=== PATIENT | female | born 1940 | race Caucasian/White ===

== ENCOUNTER 2019-11-11 10:49 | Outpatient (CLI) | payer MEDICARE, MEDICAID, SELFPAY ==
--- NOTE | 2019-11-11 10:56 | XR_ITS ---
WS: [id number] PROCEDURE: XR chest 2V* [id number] CLINICAL INFORMATION: ASTHMATIC BRONCHITIS, UNSPECIFIED ASTHMA COMPARISON: December 16, 2018 FINDINGS: Heart: Cardiomegaly. Aortic calcification. Cardiac pacer. Lungs: Moderate chronic emphysematous changes. Trace left pleural fluid. No acute pulmonary infiltrat es. Bones: Osteopenia. Mild thoracic kyphosis. Aortic calcification. XR/XR chest 2V* [id number] IMPRESSION: 1. Cardiomegaly with cardiac pacer. 2. Moderate chronic emphysematous changes. No focal pneumonia. 3. Trace left pleural fluid.
== END 2019-11-11 10:50 | disposition home or self-care (01) ==
LOC: RADWPI 10:56
PROVIDERS: Family Provider Family Medicine; PCP Family Medicine; Visit Provider Family Medicine
DX: J45.909 Unspecified asthma, uncomplicated (principal); I51.7 Cardiomegaly; Z95.0 Presence of cardiac pacemaker
CPT/HCPCS: 71046

== ENCOUNTER 2020-04-05 21:37 | Emergency (ER) | payer MEDICARE, SELFPAY ==
[2020-04-05 21:50] VITALS: BP 152/67; PULSE 98; RESP 14; TEMP 37; O2SAT 92; BMI 44.6
--- NOTE | 2020-04-06 01:11 | ED_ITS ---
HPI - Extremity Problem General: Chief complaint: Extremity Problem,Nontraumatic Stated complaint: left leg pain Time Seen by Provider: 04/06/20 01:09 Source: patient Mode of arrival: ambulatory Limitations: no limitations History of Present Illness: HPI Narrative: Patient is a 79-year-old female who presents to ED today with a complaint of left leg pain. Patient tells me she began noticing some tingling to the lateral aspect of her left thigh while she was sitting earlier today. Patient tells me when she got up and ambulated the tingling seemed to go away but continued to have pain down lateral/posterior thigh and lower leg. She states she felt what she thought was a knot near her left knee. She has not noticed any redness or swelling to the extremity. Patient tells me she is having some left-sided back pain and wonders if maybe the pain is referred from that. She has not had any injury or trauma to the extremity. Complaint: extremity pain Onset (ago): hour(s) Pain Consistency: constant Location: left and lower extremity Radiation: none Associated symptoms: Reports no associated symptoms; Deny chest pain or fever(s) Review of Systems Const: Denies: fever(s) or chills Card: Denies: chest pain Resp: Denies: dyspnea : Denies: flank pain, difficulty voiding, dysuria, urinary frequency, urinary urgency or urinary hesitancy Musc: Reports: back pain and extremity pain (L LE); Denies: neck pain, extremity swelling, joint pain or joint swelling Neuro: Reports: sensory changes (tingling to L lateral thigh when seated) and difficulty walking (secondary to pain); Denies: headache(s), weakness in extremities, lack of coordination or frequent falls PFS ED PFSH: Medical History (Updated 04/06/20 @ 03:01 by SANDY Ellis) Essential hypertension Palpitation Surgical History (Updated 02/18/20 @ 18:28 by Mitchell Beal MD) Status post placement of cardiac pacemaker Family History Other CAD (coronary artery disease) Cancer Social History Smoking and tobacco status: never smoked Alcohol intake: never Physical Exam Const: COMMON NORMALS: no acute distress, patient oriented x3, no limitations and alert NUTRITIONAL APPEARANCE: obese morbidly obese Resp: COMMON NORMALS: normal respiratory effort and clear to auscultation bilaterally AUSCULTATION: clear to auscultation bilaterally Cardio: COMMON NORMALS: regular rate and regular rhythm RATE: regular rate RHYTHM: regular rhythm Back/Pelvis: THORACIC SPINE/UPPER BACK: Yes normal to inspection and Yes th oracic ROM normal LUMBAR SPINE/LOWER BACK: Yes lumbar spinal tenderness (mild mid to lower lumbar), Yes paraspinal muscle tenderness Lumbar paraspinal muscle tenderness: left and Yes straight leg raise positive left PELVIS: Yes buttocks normal SACROILIAC JOINTS: Yes SI joints normal Extremity: OTHER: pt has severe bilateral varicosities; she has equal bilateral non-pitting LE edema; she has no redness, unequal swelling, or warmth to the extremities; they are equal color/temp with palpable DP/PT pulses and normal cap refill; she has no swelling/obvious Meier's Cyst to her left popliteal region; sensory intact; can raise and hold LE extremities off table for 5+ seconds w/o drifting down; overall patient does have very poor motor conditioning Neuro: COMMON NORMALS: patient oriented x3, moves all extremities, no focal motor deficits and no sensory deficits noted SENSORIUM/ORIENTATION: Yes alert Skin: COMMON NORMALS: no rashes or lesions noted GENERAL SKIN EXAM: no rashes or lesions noted OTHER: see extremity assessment Course Vital Signs: Vital signs: Vital Signs Temperature 98.6 F 04/05/20 21:50 Pulse Rate 87 04/06/20 03:50 Respiratory Rate 20 H 04/06/20 03:50 Blood Pressure 146/58 04/06/20 03:50 Pulse Oximetry 96 04/06/20 03:50 MDM - Extremity (Nontraumatic) MDM Narrative: Medical decision making narrative: pt reports pain down from a 10/10 to a 5/10; she was able to ambulate around the ED with her walker (which she uses at home); she has no evidence for DVT, arterial occlusion, compartment syndrome, cord compression, or other emergency at this time; states she will followup with her PCP this week for re-evaluation if symptoms persist Discharge Plan Discharge Patient Disposition: Home, Self-Care Clinical Impression: Acute lumbar radiculopathy Condition: Stable Prescriptions: New hydrocodone-acetaminophen 5-325 mg tablet 1 tab PO Q6H PRN (Reason: pain) Qty: 14 RF: 0 Medrol (Dmitriy) 4 mg tablets,dose pack See Rx Instructions .ROUTE .COMPLEX Qty: 21 RF: 0 No Action losartan-hydrochlorothiazide 50-12.5 mg tablet 1 tab PO DAILY RF: 0 gabapentin 800 mg tablet 800 mg PO TID RF: 0 gabapentin 100 mg capsule 100 mg PO TID RF: 0 levothyroxine 75 mcg capsule 75 mcg PO DAILY RF: 0 Multiple Vitamin, Womens Tablet PO RF: 0 pyridoxine (vitamin B6) [Vitamin B-6] 100 mg tablet 50 mg PO DAILY RF: 0 cholecalciferol (vitamin D3) 2,000 unit tablet 2,000 unit PO .qod RF: 0 fluticasone propionate 50 mcg/actuation spray,suspension 1 spray INTRANASAL BID Qty: 9.9 RF: 0 albuterol sulfate [ProAir HFA] 90 mcg/actuation HFA aerosol inhaler 2 puff INHALATION Q6H PRN (Reason: shortness of breath or wheezing) Qty: 18 RF: 0 famotidine 20 mg tablet 20 mg PO BID Qty: 60 RF: 8 ciprofloxacin HCl [Cipro] 250 mg tablet 250 mg PO BID Qty: 14 RF: 0 metoprolol tartrate 25 mg tablet 12.5 mg PO DAILY Qty: 30 RF: 3 amoxicillin 500 mg capsule 500 mg PO TID Qty: 20 RF: 0 Discharge Orders: Discharge Order (Routine); Ordered 04/06/20 Ordered By: Yolanda Jasmine Referrals: Kendrick Nova MD [Primary Care Provider] - Patient Instructions: Lumbar Radiculopathy (ED), Back Pain (ED) Activity Restrictions/Additional Instructions: As discussed please follow-up with your primary care provider as soon as possible if symptoms persist. You may use the pain medications as needed for severe pain. Use your walker at all times for ambulation to prevent falls. You may return to the emergency department for worsening or uncontrollable pain, redness/warmth to the leg, unequal swelling, unable to ambulate, or any other concerns you may have. Discharge Date/Time: 04/06/20 04:09 Coding Level of Care Code ED Office Engineer for Mela Fwd Exam Detailed
[2020-04-06 01:36] VITALS: PULSE 86
[2020-04-06 02:15] VITALS: RESP 20
[2020-04-06] MEDS: morphine 4 mg/mL SDV 1 mL IM (02:15)
[2020-04-06] MEDS: dexamethasone 10 mg/mL INJ 8 MG IM (02:18)
[2020-04-06] MEDS: orphenadrine 30 mg/mL Inj 2 mL 60 MG IM (02:20)
--- NOTE | 2020-04-06 03:46 | PC.NURSE ---
Pt able to ambulate to restroom with walker and staff assistance after meds adm. OPERATIONAL ASSISTANT notified
[2020-04-06 03:50] VITALS: BP 146/58; PULSE 87; RESP 20; O2SAT 96
--- NOTE | 2020-04-06 04:09 | PC.NURSE ---
i agree with this assessment
--- NOTE | 2020-04-06 04:09 | PC.NURSE ---
i agree with assessment done on this pt.
== END 2020-04-06 04:09 | disposition home or self-care (01) ==
PROVIDERS: Emergency Provider Physician Assistant; PCP Family Medicine
DX: M54.16 Radiculopathy, lumbar region (principal); I10 Essential (primary) hypertension; Z95.0 Presence of cardiac pacemaker
CPT/HCPCS: 12345; 96372; 99281; 99283; J1100; J2270; J2360

== ENCOUNTER → 2020-04-28 10:27 | Outpatient (BNVA) | payer MEDICARE, MEDICAID, SELFPAY | PROVIDERS: PCP Family Medicine; Visit Provider Family Medicine | DX: E03.8 Other specified hypothyroidism (principal); G62.9 Polyneuropathy, unspecified; I10 Essential (primary) hypertension; M51.16 Intervertebral disc disorders with radiculopathy, lumbar region; M51.37 Other intervertebral disc degeneration, lumbosacral region | CPT/HCPCS: 80053; 84443; 85025 ==

== ENCOUNTER → 2021-04-12 12:40 | Outpatient (BNVA) | payer MEDICARE, MEDICAID, SELFPAY | PROVIDERS: PCP Family Medicine; Visit Provider Family Medicine | DX: E03.8 Other specified hypothyroidism (principal); I10 Essential (primary) hypertension | CPT/HCPCS: 80053; 84443; 85025 ==

== ENCOUNTER → 2021-07-05 14:13 | Outpatient (BNVA) | payer MEDICARE, SELFPAY | PROVIDERS: PCP Family Medicine; Visit Provider Family Medicine | DX: N39.0 Urinary tract infection, site not specified (principal) | CPT/HCPCS: 81000 ==

== ENCOUNTER 2021-08-04 13:50 | Outpatient (CLI) | payer MEDICARE, SELFPAY ==
--- NOTE | 2021-08-04 14:08 | CT_ITS ---
WS: [id number] CT HEAD TECHNIQUE: Noncontrast CT of the head obtained from the skullbase to the vertex. CLINICAL INFORMATION: head trauma 72 hours prior to exam COMPARISON: None. DLP: 925.[address] scans at [facility] use at least one of these dose optimization techniques: automated e xposure control; mA and/or kV adjustment per patient size (includes targeted exams where dose is matc hed to clinical indication); or iterative reconstruction. FINDINGS: No evidence of intracranial hemorrhage or mass effect. Ventricular system and basal cisterns are miles nt. Mild small vessel changes with mild parenchymal volume loss. No extra-axial fluid collections. No evidence of mass or mass effect. Normal delcid-white differentiation. Paranasal sinuses are well aerated. Mild mucosal thickening left mastoid tip. Right mastoid air cells well aerated. Normal posterior nasopharynx. Large soft tissue hematoma overlying the dorsal parietal calvarium near the vertex. No underlying fractures. CT/CT head wo con* [id number] IMPRESSION: 1. No evidence of intracranial hemorrhage or mass effect. 2. Large soft tissue hematoma overlying the dorsal parietal calvarium near the vertex. No underlying fractures. 3. No acute intracranial findings.
--- NOTE | 2021-08-04 14:45 | CT_ITS ---
WS: [id number] CT CERVICAL TRAUMA TECHNIQUE: Noncontrast CT of the cervical spine with coronal and sagittal reformatted images. CLINICAL INFORMATION: head and neck trauma COMPARISON: None. DLP: 1506.[address] scans at [facility] use at least one of these dose optimization techniques: automated e xposure control; mA and/or kV adjustment per patient size (includes targeted exams where dose is matc hed to clinical indication); or iterative reconstruction. FINDINGS: Straightening of the normal cervical lordosis. Mild spondylitic changes. Disc space narrowing worse a t C4-C5 and C5-C6. No high-grade central canal stenosis. Normal craniocervical junction. Normal C1-C2 articulation. Dens is normal in appearance. Normal occipital condyles Normal C1 ring. No evidence of acute fracture or dislocation. Normal prevertebral soft tissues. Mastoids air cells are well aerated. CT/CT cervical spin wo con* [id number] IMPRESSION: No evidence of acute fracture or dislocation.
== END 2021-08-04 13:51 | disposition home or self-care (01) ==
PROVIDERS: PCP Family Medicine; Visit Provider Family Medicine
DX: S09.90XA Unspecified injury of head, initial encounter (principal); S13.4XXA Sprain of ligaments of cervical spine, initial encounter; X58.XXXA Exposure to other specified factors, initial encounter
CPT/HCPCS: 70450; 72125

== ENCOUNTER 2021-08-08 08:15 | Emergency (ER) | payer MEDICARE, SELFPAY ==
[2021-08-08 08:24] VITALS: PULSE 92; RESP 19; O2SAT 99; BMI 48.4
--- NOTE | 2021-08-08 08:36 | XRR_ITS ---
PROCEDURE INFORMATION: Exam: XR Ribs Exam date and time: 08/08/2021 8:36 AM Age: 81 years old Clinical indication: Injury or trauma; Fall; Rib area; Blunt trauma (contusions or hematomas) TECHNIQUE: Imaging protocol: XR of the ribs. Views: 3 views. Bilateral ribs. Total images: 5 COMPARISON: No relevant prior studies available. FINDINGS: Tubes, catheters and devices: A pacemaker device is present, its leads in appropriate position. Bones/joints: Spinal degenerative changes are evident. No acute fracture nor subluxation. No osseous erosion nor periosteal reaction. Lungs: Trace atelectasis or scar noted in the right mid lung. Heart/Mediastinum: Upper normal heart size noted. Vasculature: Atherosclerosis is evident. Gastrointestinal tract: Bowel gas pattern is nondistended and nonobstructive. Soft tissues: Normal. XR/XR ribs BI mn 4V w CXR1V [id number] IMPRESSION: 1. Trace atelectasis or scar noted in the right mid lung. 2. Normal bowel gas pattern 3. No acute osseous pathology. Radiation Dose CTDIVOL = (mGy): DLP = (mGy-cm)
--- NOTE | 2021-08-08 08:37 | ECG_ITS ---
[facility] Test Date: 2021-08-08 Pat Name: Jhoana Gandhi Department: Room: Gender: Female Animal Technician: : 1940 Requested By: Ferny Mirza Order Number: [id number] Melva MD: Cathy Montemayor M.D. Measurements Intervals [place] Rate: 86 P: 139 CT: 160 QRS: -86 QRSD: 165 T: 70 QT: 389 QTc: 467 Interpretive Statements ELECTRONIC VENTRICULAR PACEMAKER ABNORMAL RHYTHM ECG No previous ECG available for comparison Electronically Signed On 08-08-2021 13:12:31 LINING STUFFER by Cathy Montemayor M.D. [id number] f
--- NOTE | 2021-08-08 08:38 | W.ED.GENADLT ---
HPI - General Adult General: Chief complaint: General Medical Stated complaint: WEAKNESS; PEDAL EDEMA Time Seen by Provider: 08/08/21 08:18 History of Present Illness: HPI narrative: 81-year-old female history of heart failure presents due to fatigue, diffuse weakness, right chest wall pain. States that she has been poorly compliant with her Lasix lately. Also states she had a fall a week ago and since then has been feeling diffusely weak. Had CT scan of the head by primary care 3 days ago which was unremarkable. Denies any worsening of symptoms since that CT was done. Also reports right lateral chest wall pain states she did not tell her primary care doctor about. States fall was mechanical denies any prodrome. Denies any focal numbness weakness or tingling. States chest pain only started upon impact and was not present before she fell and hit her right chest. Denies any abdominal pain back pain or neck pain. Denies any hearing change vision change or vertigo. Denies feeling her pacemaker shocking her. Review of Systems Narrative: - CONSTITUTIONAL: Denies weight loss, fever and chills. - HEENT: Denies changes in vision and hearing. - RESPIRATORY: Denies SOB and cough. - CV: Denies palpitations and CP. - GI: Denies abdominal pain, nausea, vomiting and diarrhea. - : Denies dysuria and urinary frequency. - MSK: Denies myalgia and joint pain. - SKIN: Denies rash and pruritus. - NEUROLOGICAL: Denies headache,numbness and syncope. - PSYCHIATRIC: Denies suicidal ideation Physical Exam Narrative: EXAM NARRATIVE: - GENERAL: Alert and oriented x 3. No acute distress. Well-nourished. - EYES: EOMI. Anicteric. - HENT: Atraumatic, no C-spine tenderness. Moist mucous membranes. No scleral icterus. No cervical lymphadenopathy. - LUNGS: Clear to auscultation bilaterally. No accessory muscle use. Equal lung sounds bilaterally. No respiratory distress. - CARDIOVASCULAR: Regular rate and rhythm. No murmur. No JVD. Right lateral chest wall tenderness to palpation. - ABDOMEN: Soft, non-tender and non-distended. Negative CVA tenderness bilaterally, no rebound or guarding, negative Garcia sign. No palpable masses. - EXTREMITIES: +2 bilateral pitting lower extremity edema. Non-tender. - SKIN: No rashes or lesions. Warm. - NEUROLOGIC: No meningismus or focal neurological deficits. CN II-XII grossly intact. - PSYCHIATRIC: Cooperative. Appropriate mood and affect. Course Vital Signs: Vital signs: Vital Signs Pulse Rate 84 08/08/21 09:35 Respiratory Rate 19 H 08/08/21 08:24 Blood Pressure 137/75 08/08/21 09:35 Pulse Oximetry 97 08/08/21 09:35 MDM - General Adult MDM Narrative: Medical decision making narrative: 81-year-old female presents with general malaise and diffuse weakness. Does have bilateral lower extremity edema. Had a fall a week ago but did not have any prodrome or syncope or loss of consciousness. Nonfocal neurologic exam. Had unremarkable CT scan by PCP. X-ray does not reveal pneumothorax or consolidation. No sign of rib fractures. No other focal pain or tenderness. Had good urine output with a dose of Lasix. EKG and troponin do not reveal any sign of acute ischemia or other acute abnormality. Does have ventricular paced rhythm but pacemaker interrogation does not reveal any episodes of arrhythmia or discharges. Remainder of lab work is unremarkable. Encouraged her to be compliant with her home Lasix. At this time I believe patient would be safe for discharge and outpatient follow-up. Return precautions provided. Plan was reviewed with the patient who expressed understanding. Questions answered. Patient will follow up with PCP. Patient discharged in stable condition. Lab Data: Labs: Lab Results 08/08/21 08/08/21 08/08/21 09:10 11:13 11:13 WBC 7.7 10^3/uL 10^3/ uL (4.0-10.0) RBC 4.71 10^6/uL 10^6 /uL (4.1-5.3) Hgb 13.8 g/dL g/dL (11.5-15.3) Hct 44.6 % % (37.0-47.0) MCV 94.7 fl fl (81-99) MCH 29.3 pg pg (28.0-34.0) MCHC 30.9 g/dL g/dL (30.0-36.0) RDW 13.0 % % (12.1-15.1) Plt Count 160 10^3/cmm 10^3 /cmm (130-400) MPV 11.7 fL H fL (7.4-10.4) Neut % (Auto) 77.0 % % Lymph % (Auto) 13.0 % % [place] % (Auto) 7.6 % % Eos % (Auto) 1.2 % % Baso % (Auto) 0.7 % % Neut # (Auto) 5.91 10^3/uL 10^3 /uL (1.8-7.7) Lymph # (Auto) 1.0 10^3/uL 10^3/ uL (0.8-4.8) [place] # (Auto) 0.6 10^3/uL 10^3/ uL (0.2-0.9) Eos # (Auto) 0.1 10^3/uL 10^3/ uL (0.0-0.8) Baso # (Auto) 0.1 10^3/uL 10^3/ uL (0.0-0.1) Nucleated RBC % (a uto) 0 % % Nucleated RBCs # 0.0 /100WBC /100W BC Sodium Cancelled Potassium Cancelled Chloride Cancelled Carbon Dioxide Cancelled Anion Gap Cancelled BUN Cancelled Creatinine Cancelled GFR Calculation Cancelled Glucose Cancelled Calculated Osmolal ity Cancelled Calcium Cancelled Total Bilirubin Cancelled AST Cancelled ALT Cancelled Alkaline Phosphata se Cancelled Troponin T Baselin e NT-Pro-B Natriuret Pep Cancelled Total Protein Cancelled Albumin Cancelled Globulin Cancelled Urine Color Yellow (Yellow) Urine Appearance Clear (CLEAR) Urine pH 8 H (5-7) Ur Specific Gravit y 1.010 (1.005-1.030) Urine Protein Neg (Negative) Urine Glucose (UA) Norm (Normal) Urine Ketones Negative (Negative) Urine Blood Neg (Negative) Urine Nitrate Negative (Negative) Urine Bilirubin Neg (Negative) Prot Sulfosalicyli c Acd Negative (Negative) Urine Urobilinogen Norm mg/dL mg/dL (Negative) Ur Leukocyte Yulia ase Negative (Negative) Urine RBC Rare /hpf /hpf (0-2) Urine WBC 0-4 /hpf H /hpf (0-5) Ur Squamous Epith Cells Rare /hpf /hpf (0-5) Amorphous Sediment Not Reportable Urine Bacteria Trace /hpf /hpf (NONE) 08/08/21 08/08/21 08/08/21 11:13 11:54 13:14 WBC RBC Hgb Hct MCV MCH MCHC RDW Plt Count MPV Neut % (Auto) Lymph % (Auto) [place] % (Auto) Eos % (Auto) Baso % (Auto) Neut # (Auto) Lymph # (Auto) [place] # (Auto) Eos # (Auto) Baso # (Auto) Nucleated RBC % (a uto) Nucleated RBCs # Sodium 139 mmol/L mmol/L (136-145) Potassium 3.8 mmol/L mmol/L (3.5-5.1) Chloride 97 mmol/L L mmol/ L (98-107) Carbon Dioxide 28 mmol/L mmol/L (22-29) Anion Gap 17.8 (5-19) BUN 8 mg/dL mg/dL (8-23) Creatinine 0.7 mg/dL mg/dL (0.5-0.9) GFR Calculation Not Reportable Glucose 101 mg/dL mg/dL (65-115) Calculated Osmolal ity 286 mOsm/kg mOsm/ kg (285-295) Calcium 8.9 mg/dL mg/dL (8.5-10.5) Total Bilirubin 0.5 mg/dL mg/dL (0.15-1.2) AST 21 U/L U/L (0-32) ALT 9 U/L U/L (0-33) Alkaline Phosphata se 87 IU/L IU/L (35-105) Troponin T Baselin e Cancelled 12 ng/L H ng/L (0-10) NT-Pro-B Natriuret Pep Total Protein 7.2 g/dL g/dL (6.6-8.7) Albumin 3.6 g/dL g/dL (3.5-5.2) Globulin 3.6 g/dL g/dL (1.3-4.6) Urine Color Urine Appearance Urine pH Ur Specific Gravit y Urine Protein Urine Glucose (UA) Urine Ketones Urine Blood Urine Nitrate Urine Bilirubin Prot Sulfosalicyli c Acd Urine Urobilinogen Ur Leukocyte Yulia ase Urine RBC Urine WBC Ur Squamous Epith Cells Amorphous Sediment Urine Bacteria EKG Data^: EKG 1: Computer generated interpretation: Ribs w/Chest X-Ray 08/08/21 08:36 IMPRESSION: 1. Trace atelectasis or scar noted in the right mid lung. 2. Normal bowel gas pattern 3. No acute osseous pathology. Radiation Dose CTDIVOL = (mGy): DLP = (mGy-cm) Other EKG comments: Ventricular paced rhythm at 86, no sign of acute ischemia or other acute abnormality. Coding Level of Care Code ED Architecture Professor for Mela Arriaza
[2021-08-08 09:35] VITALS: BP 137/75; PULSE 84; O2SAT 97
[2021-08-08 09:57] LABS: Urine Appearance Clear (CLEAR); Urine Color Yellow (Yellow); pH Urine 8 (5-7)
[2021-08-08 09:58] LABS: Bilirubin Urine Neg (Negative); Blood Urine Neg (Negative); Glucose Urine UA Norm (Normal); Ketones Urine Negative (Negative); Leukocyte Esterase Urine Negative (Negative); Nitrate Urine Negative (Negative); Protein Urine Neg (Negative); Sulfosalicylic Acid Urine Negative (Negative); Urobilinogen Urine Norm (Negative)
[2021-08-08 10:05] LABS: Add Urine Culture? No; Bacteria Urine TRACE /hpf; RBC Urine RARE /hpf (0-2); Squamous Epithelial Cell Urine RARE /hpf (0-5); WBC Urine 0-4 /hpf (0-5)
--- NOTE | 2021-08-08 10:37 | ECG_ITS ---
[facility] Test Date: 2021-08-08 Pat Name: Jhoana Gandhi Department: Room: Gender: Female Lead Massage Therapist: : 1940 Requested By: Ferny Mirza Order Number: [id number] Melva MD: Cathy Montemayor M.D. Measurements Intervals [place] Rate: 78 P: CO: QRS: -88 QRSD: 171 T: 73 QT: 406 QTc: 463 Interpretive Statements ELECTRONIC VENTRICULAR PACEMAKER ABNORMAL RHYTHM ECG Compared to ECG 08/08/2021 08:45:14 No significant changes Electronically Signed On 08-08-2021 13:22:28 ACCOUNTING COORDINATOR by Cathy Montemayor M.D. [id number] f
[2021-08-08] MEDS: acetaminophen 325 mg Tablet 650 MG PO (11:10)
[2021-08-08] MEDS: FUROsemide 10 mg/mL SDV 4mL 40 MG IVP (11:10)
[2021-08-08 11:29] LABS: Basophils # 0.1 10^3/uL (0.0-0.1); Basophils % 0.7 %; Eosinophils # 0.1 10^3/uL (0.0-0.8); Eosinophils % 1.2 %; Hematocrit 44.6 % (37.0-47.0); Hemoglobin 13.8 g/dL (11.5-15.3); Mean Corpuscular HGB Conc 30.9 g/dL (30.0-36.0); Mean Corpuscular Hemoglobin 29.3 pg (28.0-34.0); Mean Corpuscular Volume 94.7 fl (81-99); Mean Platelet Volume 11.7 fL (7.4-10.4); Monocytes # 0.6 10^3/uL (0.2-0.9); Monocytes % 7.6 %; Neutrophils # 5.91 10^3/uL (1.8-7.7); Nucleated Red Blood Cells % 0 %; Platelet Count 160 10^3/cmm (130-400); Red Blood Count 4.71 10^6/uL (4.1-5.3); White Blood Count 7.7 10^3/uL (4.0-10.0)
[2021-08-08 14:05] LABS: Alanine Aminotransferase 9 U/L (0-33); Albumin Level 3.6 g/dL (3.5-5.2); Alkaline Phosphatase 87 IU/L (35-105); Anion Gap 17.8 (5-19); Aspartate Amino Transferase 21 U/L (0-32); Blood Urea Nitrogen 8 mg/dL (8-23); Calcium 8.9 mg/dL (8.5-10.5); Carbon Dioxide 28 mmol/L (22-29); Chloride 97 mmol/L (98-107); Globulin 3.6 g/dL (1.3-4.6); Glucose 101 mg/dL (65-115); Osmolality Calculated 286 mOsm/kg (285-295); Potassium 3.8 mmol/L (3.5-5.1); Sodium 139 mmol/L (136-145); Total Bilirubin 0.5 mg/dL (0.15-1.2); Total Protein 7.2 g/dL (6.6-8.7)
[2021-08-08 14:32] LABS: NT Pro B Type Natriuretic Pept 1269 pg/mL (0-450)
[2021-08-08 14:47] LABS: Troponin(5th) Baseline 11 ng/L (0-10)
[2021-08-08 14:48] LABS: Troponin 5 2HR Delta 1.09 ABS# (0-10)
[2021-08-08 14:50] LABS: Troponin 5 2HR 12.09 ng/L (0-10)
== END 2021-08-08 14:48 | disposition home or self-care (01) ==
PROVIDERS: Emergency Provider Emergency Medicine; PCP Family Medicine
DX: R53.1 Weakness (principal); R07.89 Other chest pain
CPT/HCPCS: 36415; 71111; 80053; 81001; 83880; 84484; 85025; 93005; 96374; 99283; J1940

== ENCOUNTER → 2021-12-30 13:47 | Outpatient (BNVA) | payer MEDICARE, SELFPAY | PROVIDERS: PCP Family Medicine; Visit Provider Nurse Practitioner Family | DX: I11.0 Hypertensive heart disease with heart failure (principal); I50.32 Chronic diastolic (congestive) heart failure; I48.19 Other persistent atrial fibrillation; Z79.01 Long term (current) use of anticoagulants | CPT/HCPCS: 99214 ==

== ENCOUNTER → 2022-01-07 10:26 | Outpatient (BNVA) | payer MEDICARE, SELFPAY | PROVIDERS: PCP Family Medicine; Visit Provider Internal Medicine Cardiovascular Disease | DX: Z45.010 Encounter for checking and testing of cardiac pacemaker pulse generator [battery] (principal) | CPT/HCPCS: 93280 ==

== ENCOUNTER → 2022-01-18 11:38 | Outpatient (BNVA) | payer MEDICARE, SELFPAY | PROVIDERS: PCP Family Medicine; Visit Provider Family Medicine | DX: R32 Unspecified urinary incontinence (principal) | CPT/HCPCS: 81000 ==

== ENCOUNTER 2022-04-14 09:05 | Emergency (ER) | payer MEDICARE, SELFPAY ==
--- NOTE | 2022-04-14 09:09 | XRR_ITS ---
PROCEDURE INFORMATION: Exam: XR Chest Exam date and time: 04/14/2022 9:52 AM Age: 81 years old Clinical indication: Pain; Shortness of breath; Angina pectoris; Prior surgery; Surgery type: Pacer; Additional info: Cp TECHNIQUE: Imaging protocol: Radiologic exam of the chest. Views: 1 view. COMPARISON: CR XR ribs BI mn 4V w CXR1V [id number] 08/08/2021 10:06 AM FINDINGS: Lungs: Low lung volumes are seen. The lungs are otherwise clear No consolidation. Pleural spaces: Unremarkable. No pleural effusion. No pneumothorax. Heart/Mediastinum: Unremarkable. No cardiomegaly. Bones/joints: Unremarkable. Cardiac device left anterior chest. Bipolar leads are intact and appear well-positioned. Comparison to prior examination similar findings seen. XR/XR chest 1V portable [id number] IMPRESSION: No acute findings. Low lung volumes. Stable cardiac device left anterior chest
--- NOTE | 2022-04-14 09:10 | ECG_ITS ---
[facility] Test Date: 2022-04-14 Pat Name: Jhoana Gandhi Department: Room: Gender: Female Integrated Logistics Support Manager: : 1940 Requested By: Obi Lynch Order Number: [id number] Frye MD: Nick Vazquez M.D. Measurements Intervals [place] Rate: 72 P: 124 VT: 258 QRS: -88 QRSD: 170 T: 64 QT: 431 QTc: 472 Interpretive Statements ELECTRONIC VENTRICULAR PACEMAKER ABNORMAL RHYTHM ECG Compared to ECG 12/16/2018 13:50:11 Sinus rhythm no longer present First degree AV block no longer present Left-axis deviation no longer present Left bundle-branch block no longer present Electronically Signed On 04-14-2022 21:15:15 CDT by Nick Vazquez M.D. [id number]
[2022-04-14 09:11] VITALS: BP 148/78; PULSE 71; RESP 16; TEMP 36.6; O2SAT 98; BMI 47.5
--- NOTE | 2022-04-14 09:22 | ED_ITS ---
HPI - Chest Pain General: Chief Complaint: Chest Pain Stated Complaint: Chest pains and tightness Time Seen by Provider: 04/14/22 09:13 Source: patient Mode of arrival: ambulatory Limitations: no limitations History of Present Illness: 81 yo female generally does not feel well. She has some chest tightness that she reports has had for approximately a month. She has no known history of coronary artery disease she did have a pacemaker placed she has a history of atrial fibrillation she has not noticed any palpitations. She is not forgotten or run out of any of her medications recently. Denies any fever sweats or chills she has some mild frequency of urination. No vomiting no diarrhea. She does states she vaguely does not feel well this persisted for at least a month. MD complaint: chest pain Onset (ago): month(s) (1) Timing of current episode: episodic Onset: during rest Pain location: left chest Pain radiation: none Severity: mild Quality: tightness and heaviness Relieving factors: nothing Exacerbating factors: nothing Associated symptoms: Deny abdominal pain, diaphoresis, dyspnea, fever(s), leg edema, nausea, palpitations, sense of impending doom, syncope or vomiting Treatment prior to arrival: none Review of Systems Const: Denies: fever(s) or diaphoresis ENMT: Denies: throat pain, ear or mastoid pain, nasal discharge or nasal congestion Card: Reports: chest pain; Denies: palpitations, irregular heart rhythm, edema or syncope Resp: Denies: dyspnea, productive cough, non-productive cough or wheezing GI: Denies: abdominal pain, nausea or vomiting : Reports: dysuria (Mild) and urinary frequency; Denies: flank pain, difficulty voiding or urinary urgency Skin/Breast: Denies: rash or pruritus PFSH ED PFSH: Medical History DDD (degenerative disc disease) Diastolic heart failure Essential hypertension Hypertension Hypothalamic hypothyroidism Hypothyroid Lumbar disc disease with radiculopathy Neuropathy Palpitation Surgical History Status post placement of cardiac pacemaker Family History Other CAD (coronary artery disease) Cancer Social History (Reviewed 04/14/22 @ 12:38 by JOSEFA Maya Smoking and tobacco status: never smoked Alcohol intake: never Physical Exam Const: COMMON NORMALS: no acute distress GENERAL APPEARANCE: cooperative and comfortable ORIENTATION/CONSCIOUSNESS: Yes awake, Yes oriented to person, Yes oriented to place and Yes oriented to time HENMT: COMMON NORMALS: normocephalic, atraumatic and hearing grossly normal bilaterally HEAD & SCALP: normocephalic and atraumatic Neck/C-Spine: COMMON NORMALS: no JVD Resp: COMMON NORMALS: normal respiratory effort, No retractions, No use of accessory muscles and clear to auscultation bilaterally AUSCULTATION: clear to auscultation bilaterally Cardio: COMMON NORMALS: no JVD, regular rate, regular rhythm and No murmurs present (Cardio) RATE: regular rate RHYTHM: regular rhythm GI: COMMON NORMALS: Soft to palpation and No hepatosplenomegaly present AUSCULTATION: Yes normoactive bowel sounds PALPATION: Yes Soft to palpation, No Tenderness to palpation present (GI), No Guarding due to palpation present (GI) and Yes No hepatosplenomegaly present Extremity: COMMON NORMALS: normal to inspection, capillary refill normal, no clubbing, cyanosis or edema, no calf tenderness and no pedal edema Neuro: SENSORIUM/ORIENTATION: Yes oriented to person, Yes oriented to place and Yes oriented to time Skin: COMMON NORMALS: no rashes or lesions noted GENERAL SKIN EXAM: no rashes or lesions noted Course 2 Vital Signs: Vital signs: Vital Signs Temperature 97.8 F 04/14/22 09:11 Pulse Rate 71 04/14/22 09:11 Respiratory Rate 16 04/14/22 09:11 Blood Pressure 148/78 04/14/22 09:11 Pulse Oximetry 98 04/14/22 09:11 MDM - Chest Pain Medical Decision Making Labs and imaging reviewed patient has a mild cystitis troponins negative EKG showed paced rhythm she not having any significant chest pain now. We will go and discharge home Macrobid twice daily for 7 days return if is further problems Medical Records I reviewed the patient's medical records. Lab Data : 04/14/22 09:40 04/14/22 09:40 Radiology Impressions Chest X-Ray 04/14/22 09:09 IMPRESSION: No acute findings. Low lung volumes. Stable cardiac device left anterior chest Laboratory Results WBC 8.0 10^3/uL (4.0-10.0) 04/14/22 09:40 RBC 4.00 10^6/uL (4.1-5.3) L 04/14/22 09:40 Hgb 11.6 g/dL (11.5-15.3) 04/14/22 09:40 Hct 38.3 % (37.0-47.0) 04/14/22 09:40 MCV 95.8 fl (81-99) 04/14/22 09:40 MCH 29.0 pg (28.0-34.0) 04/14/22 09:40 MCHC 30.3 g/dL (30.0-36.0) 04/14/22 09:40 RDW 13.1 % (12.1-15.1) 04/14/22 09:40 Plt Count 200 10^3/cmm (130-400) 04/14/22 09:40 MPV 10.7 fL (7.4-10.4) H 04/14/22 09:40 Neut % (Auto) 63.7 % 04/14/22 09:40 Lymph % (Auto) 21.3 % 04/14/22 09:40 [place] % (Auto) 10.7 % 04/14/22 09:40 Eos % (Auto) 3.0 % 04/14/22 09:40 Baso % (Auto) 0.9 % 04/14/22 09:40 Neut # (Auto) 5.09 10^3/uL (1.8-7.7) 04/14/22 09:40 Lymph # (Auto) 1.7 10^3/uL (0.8-4.8) 04/14/22 09:40 [place] # (Auto) 0.9 10^3/uL (0.2-0.9) 04/14/22 09:40 Eos # (Auto) 0.2 10^3/uL (0.0-0.8) 04/14/22 09:40 Baso # (Auto) 0.1 10^3/uL (0.0-0.1) 04/14/22 09:40 Nucleated RBC % (auto) 0 % 04/14/22 09:40 Nucleated RBCs # 0.0 /100WBC 04/14/22 09:40 Sodium 140 mmol/L (136-145) 04/14/22 09:40 Potassium 4.3 mmol/L (3.5-5.1) 04/14/22 09:40 Chloride 99 mmol/L (98-107) 04/14/22 09:40 Carbon Dioxide 33 mmol/L (22-29) H 04/14/22 09:40 Anion Gap 12.3 (5-19) 04/14/22 09:40 BUN 14 mg/dL (8-23) 04/14/22 09:40 Creatinine 0.9 mg/dL (0.5-0.9) 04/14/22 09:40 GFR Calculation Not Reportable 04/14/22 09:40 Glucose 103 mg/dL (65-115) 04/14/22 09:40 Calculated Osmolality 291 mOsm/kg (285-295) 04/14/22 09:40 Calcium 9.2 mg/dL (8.5-10.5) 04/14/22 09:40 Total Bilirubin 0.3 mg/dL (0.15-1.2) 04/14/22 09:40 AST 18 U/L (0-32) 04/14/22 09:40 ALT 12 U/L (0-33) 04/14/22 09:40 Alkaline Phosphatase 105 IU/L (35-105) 04/14/22 09:40 Troponin T Baseline 13 ng/L (0-10) H 04/14/22 09:40 Troponin T 120 Minute 11.46 ng/L (0-10) H 04/14/22 11:38 Delta Troponin T -1.54 ABS# (0-10) L 04/14/22 11:38 NT-Pro-B Natriuret Pep 323 pg/mL (0-450) 04/14/22 09:40 Total Protein 6.7 g/dL (6.6-8.7) 04/14/22 09:40 Albumin 4.1 g/dL (3.5-5.2) 04/14/22 09:40 Globulin 2.6 g/dL (1.3-4.6) 04/14/22 09:40 Urine Color Colorless (Yellow) 04/14/22 10:45 Urine Appearance Clear (CLEAR) 04/14/22 10:45 Urine pH 7 (5-7) 04/14/22 10:45 Ur Specific [place] 1.005 (1.005-1.030) 04/14/22 10:45 Urine Protein Neg (Negative) 04/14/22 10:45 Urine Glucose (UA) Norm (Normal) 04/14/22 10:45 Urine Ketones Negative (Negative) 04/14/22 10:45 Urine Blood Neg (Negative) 04/14/22 10:45 Urine Nitrate Negative (Negative) 04/14/22 10:45 Urine Bilirubin Neg (Negative) 04/14/22 10:45 Urine Urobilinogen Norm mg/dL (Negative) 04/14/22 10:45 Ur Leukocyte Esterase 1+ (Negative) H 04/14/22 10:45 Urine RBC 0-4 /hpf (0-2) H 04/14/22 10:45 Urine WBC 25-40 /hpf (0-5) H 04/14/22 10:45 Ur Squamous Epith Cells 0-4 /hpf (0-5) H 04/14/22 10:45 Amorphous Sediment Not Reportable 04/14/22 10:45 Urine Bacteria 4+ /hpf (NONE) H 04/14/22 10:45 Discharge Plan Discharge Patient Disposition: Home Clinical Impression: Cystitis Condition: Stable Prescriptions: New Macrobid 100 mg capsule 100 mg PO BID 7 Days Qty: 14 0RF Rx Instructions: must administer with a meal/food No Action lysine [L-Lysine] 500 mg tablet 500 mg PO DAILY PRN (Reason: cold sores) 0RF hydrocodone-acetaminophen 5-325 mg tablet 1 tab PO Q4H PRN (Reason: pain) 7 Days Qty: 42 0RF pyridoxine (vitamin B6) [Vitamin B-6] 100 mg tablet 50 mg PO DAILY 0RF nitrofurantoin macrocrystal [Macrodantin] 50 mg capsule 50 mg PO BID Qty: 20 0RF metoprolol tartrate 25 mg tablet 25 mg PO BID Qty: 180 3RF Eliquis 5 mg tablet 5 mg PO BID Qty: 180 3RF potassium chloride 20 mEq tablet extended release 20 meq PO DAILY Qty: 90 3RF levothyroxine 88 mcg tablet 88 mcg PO DAILY 0RF gabapentin 800 mg tablet 800 mg PO TID 0RF furosemide 20 mg tablet 20 mg PO DAILY PRN (Reason: Edema) 0RF diltiazem HCl 60 mg capsule,extended release 12 hr 60 mg PO BID 0RF gabapentin 100 mg capsule 100 mg PO TID 0RF oxybutynin chloride 5 mg tablet 5 mg PO DAILY 0RF moxifloxacin 0.5 % Drops 1 drp OPHTHALMIC (EYE) TID 0RF Rx Instructions: RIGHT EYE Discharge Orders: Discharge ED (Routine); Ordered 04/14/22 Ordered By: Chilango Dove Referrals: Kendrick Nova MD [Primary Care Provider] - Discharge Diet: Usual diet Discharge Activity: Increase activity as tolerated Patient Instructions: Opioid Safety Activity Restrictions/Additional Instructions: Increase fluids. If symptoms worsen or change return to the emergency room Coding Level of Care Code ED [employer]ing [employer] for Mela Arriaza
[2022-04-14 09:58] LABS: Basophils # 0.1 10^3/uL (0.0-0.1); Basophils % 0.9 %; Eosinophils # 0.2 10^3/uL (0.0-0.8); Hematocrit 38.3 % (37.0-47.0); Hemoglobin 11.6 g/dL (11.5-15.3); Lymphocytes # 1.7 10^3/uL (0.8-4.8); Lymphocytes % 21.3 %; Mean Corpuscular HGB Conc 30.3 g/dL (30.0-36.0); Mean Corpuscular Volume 95.8 fl (81-99); Mean Platelet Volume 10.7 fL (7.4-10.4); Monocytes # 0.9 10^3/uL (0.2-0.9); Monocytes % 10.7 %; Neutrophils # 5.09 10^3/uL (1.8-7.7); Neutrophils % 63.7 %; Nucleated Red Blood Cells % 0 %; Platelet Count 200 10^3/cmm (130-400); Red Cell Distribution Width 13.1 % (12.1-15.1)
[2022-04-14 10:22] LABS: Troponin(5th) Baseline 13 ng/L (0-10)
[2022-04-14 10:36] LABS: Alanine Aminotransferase 12 U/L (0-33); Albumin Level 4.1 g/dL (3.5-5.2); Alkaline Phosphatase 105 IU/L (35-105); Anion Gap 12.3 (5-19); Aspartate Amino Transferase 18 U/L (0-32); Blood Urea Nitrogen 14 mg/dL (8-23); Calcium 9.2 mg/dL (8.5-10.5); Carbon Dioxide 33 mmol/L (22-29); Chloride 99 mmol/L (98-107); Globulin 2.6 g/dL (1.3-4.6); Glucose 103 mg/dL (65-115); NT Pro B Type Natriuretic Pept 323 pg/mL (0-450); Osmolality Calculated 291 mOsm/kg (285-295); Potassium 4.3 mmol/L (3.5-5.1); Sodium 140 mmol/L (136-145); Total Bilirubin 0.3 mg/dL (0.15-1.2); Total Protein 6.7 g/dL (6.6-8.7)
[2022-04-14 11:27] LABS: Add Urine Microscopic? YES; Bilirubin Urine Neg (Negative); Blood Urine Neg (Negative); Glucose Urine UA Norm (Normal); Ketones Urine Negative (Negative); Leukocyte Esterase Urine 1+ (Negative); Nitrate Urine Negative (Negative); Protein Urine Neg (Negative); Specific Gravity, Urine 1.005 (1.005-1.030); Urine Appearance Clear (CLEAR); Urine Color Colorless (Yellow); Urobilinogen Urine Norm (Negative); pH Urine 7 (5-7)
[2022-04-14 11:28] LABS: Add Urine Culture? Yes; Bacteria Urine 4+ /hpf; RBC Urine 0-4 /hpf (0-2); Squamous Epithelial Cell Urine 0-4 /hpf (0-5); WBC Urine 25-40 /hpf (0-5)
[2022-04-14 12:14] LABS: Troponin 5 2HR 11.46 ng/L (0-10)
[2022-04-14 12:17] LABS: Troponin 5 2HR Delta -1.54 ABS# (0-10)
== END 2022-04-14 13:10 | disposition home or self-care (01) ==
PROVIDERS: Physician Assistant; Emergency Provider Family Medicine; PCP Family Medicine
DX: N30.90 Cystitis, unspecified without hematuria (principal); Z79.01 Long term (current) use of anticoagulants; I11.0 Hypertensive heart disease with heart failure; I50.30 Unspecified diastolic (congestive) heart failure; Z95.0 Presence of cardiac pacemaker
CPT/HCPCS: 71045; 80053; 81001; 83880; 84484; 85025; 87077; 87086; 87186; 93005; 99285

== ENCOUNTER → 2022-07-15 10:13 | Outpatient (BNVA) | payer MEDICARE, SELFPAY | PROVIDERS: PCP Family Medicine; Visit Provider Internal Medicine Cardiovascular Disease | DX: I11.0 Hypertensive heart disease with heart failure (principal); I50.32 Chronic diastolic (congestive) heart failure; I48.19 Other persistent atrial fibrillation; Z79.01 Long term (current) use of anticoagulants; Z95.0 Presence of cardiac pacemaker | CPT/HCPCS: 93280; 99214 ==

== ENCOUNTER → 2022-10-03 11:56 | Outpatient (BNVA) | payer MEDICARE, SELFPAY | PROVIDERS: PCP Family Medicine; Visit Provider Family Medicine | DX: I11.0 Hypertensive heart disease with heart failure (principal); I50.32 Chronic diastolic (congestive) heart failure | CPT/HCPCS: 80053; 83880; 84443 ==

== ENCOUNTER → 2023-01-17 10:46 | Outpatient (BNVA) | payer MEDICARE, SELFPAY | PROVIDERS: PCP Family Medicine; Visit Provider Specialist | DX: I48.19 Other persistent atrial fibrillation (principal); Z79.01 Long term (current) use of anticoagulants; Z95.0 Presence of cardiac pacemaker; I11.0 Hypertensive heart disease with heart failure; I50.32 Chronic diastolic (congestive) heart failure | CPT/HCPCS: 99214 ==

== ENCOUNTER 2023-02-27 13:43 | Outpatient (CLI) | payer MEDICARE, SELFPAY ==
--- NOTE | 2023-02-27 13:30 | USCV_ITS ---
Jhoana Gandhi Age: 82 Gender: F : 1940 Exam Date: 02/27/2023 14:12 Ordering Phys: Leonardo Yang MD ([email or web address]) Technologist: Dorys Caicedo [place] [facility] [place]: SOB BP: 136 / 70 HR: 68 Rhythm: Sinus Technical Quality: Adequate MEASUREMENTS (Male / Female) Normal Values 2D ECHO LV Diastolic Diameter PLAX 4.8 cm 4.2 - 5.9 / 3.9 - 5.3 cm LV Systolic Diameter PLAX 3.1 cm IVS Diastolic Thickness 1.3 cm 0.6 - 1.0 / 0.6 - 0.9 cm IVS Systolic Thickness 1.6 cm LVPW Diastolic Thickness 1.4 cm 0.6 - 1.0 / 0.6 - 0.9 cm LVPW Systolic Thickness 2.1 cm LVOT Diameter 2.0 cm LV Ejection Fraction 2D Teich 62.7 % LV Ejection Fraction MOD 2C 58.1 % LV Ejection Fraction 2C AL 58.5 % LA Diameter 3.8 cm LA Width 3.5 cm LA Height 6.3 cm RA Width 3.4 cm RA Height 5.1 cm Aorta at Sinotubular Diameter 2.1 cm IVC Diameter 2.0 cm M-MODE Aortic Annulus Diameter 2.6 cm LA Ao Ratio MM 1.4 MV E Point Septal Separation 0.2 cm DOPPLER AV Peak Velocity 179.7 cm/s LVOT Peak Velocity 97.0 cm/s AV Area Cont Eq vti 1.8 cm squared AV Area Cont Eq pk 1.8 cm squared MV Peak Velocity 151.0 cm/s MV Area PHT 5.9 cm squared Mitral E to A Ratio 2.2 MV E' Velocity 78.0 cm/s Mitral E to MV E' Ratio 8.9 Mitral E to LV E' Lateral Ratio 10.4 Mitral E to LV E' Septal Ratio 7.9 TR Peak Velocity 267.5 cm/s TR Peak Gradient 28.6 mmHg Right Atrial Pressure 5.0 mmHg Pulmonary Artery Systolic Pressu 33.6 mmHg PV Peak Velocity 109.0 cm/s RV Acceleration Time 0.1 s RV Ejection Time 0.3 s RV AcT/ET 0.2 FINDINGS Left Ventricle Normal left ventricular size, systolic function and increased wall thickness. Moderate concentric left ventricular hypertrophy. Left ventricular ejection fraction is estimated at 55 %. There is distal apical septal and apical hypokinesis. Grade III diastolic dysfunction (restrictive filling pattern), severely elevated filling pressures. Right Ventricle Normal right ventricular size and systolic function. Moderate pulmonary hypertension, RVSP 49 mmHg. Catheter/pacemaker wire visualized in the right ventricle. Right Atrium Normal right atrial size. Left Atrium Mildly increased left atrial size. Mitral Valve Structurally normal mitral valve. No mitral valve stenosis. Trace mitral valve regurgitation. Aortic Valve Aortic valve not well visualized. No aortic valve stenosis. No aortic valve regurgitation. Tricuspid Valve Structurally normal tricuspid valve. No tricuspid valve stenosis. Mild tricuspid valve regurgitation. Pulmonic Valve Pulmonic valve not well visualized. Pericardium No pericardial effusion. Aorta Normal size aortic root and proximal ascending aorta. IVC Normal IVC dimension with >50% respiratory change of the inferior vena cava. CONCLUSIONS 1. Normal left ventricular size, systolic function and increased wall thickness. Moderate concentric left ventricular hypertrophy. Left ventricular ejection fraction is estimated at 55 %. There seems to be distal apical septal and apical hypokinesis. Grade III diastolic dysfunction (restrictive filling pattern), severely elevated filling pressures. 2. Mild tricuspid valve regurgitation. 3. Moderate pulmonary hypertension, RVSP 49 mmHg. 4. No significant change when compared to study dated 09/27/2018. Cathy Montemayor MD (Electronically Signed) Final Date: 02 March 2023 18:43 S
== END 2023-02-27 13:44 | disposition home or self-care (01) ==
PROVIDERS: PCP Family Medicine; Visit Provider Specialist
DX: R06.02 Shortness of breath (principal); I50.30 Unspecified diastolic (congestive) heart failure; Z95.0 Presence of cardiac pacemaker; I07.1 Rheumatic tricuspid insufficiency; I27.20 Pulmonary hypertension, unspecified
CPT/HCPCS: 93306

== ENCOUNTER → 2023-07-18 11:18 | Outpatient (BNVA) | payer MEDICARE, SELFPAY | PROVIDERS: PCP Family Medicine; Visit Provider Internal Medicine Cardiovascular Disease | DX: I48.19 Other persistent atrial fibrillation (principal); Z79.01 Long term (current) use of anticoagulants; I11.0 Hypertensive heart disease with heart failure; I50.32 Chronic diastolic (congestive) heart failure; Z95.0 Presence of cardiac pacemaker | CPT/HCPCS: 99214 ==

== ENCOUNTER 2023-09-13 13:07 | Emergency (ER) | payer MEDICARE, SELFPAY ==
[2023-09-13 13:12] VITALS: BP 123/74; PULSE 76; RESP 18; TEMP 36.6; O2SAT 100; BMI 49.1
[2023-09-13 18:12] VITALS: BP 104/74; PULSE 92; RESP 18; O2SAT 99
--- NOTE | 2023-09-13 18:27 | ED_ITS ---
HPI - Extremity Problem General: Chief complaint: Extremity Injury, Lower Stated complaint: blood blister on left leg, bleeding Time Seen by Provider: 09/13/23 18:00 History of Present Illness: Patient presents to the ER with complaints of large blood blister on her left anterior kwan. Patient is on Eliquis as a blood thinner. Patient states approximately 3 days ago she knocked a book off the shelf and it hit her in the kwan and she developed this blood blister. She went to urgent care because he was red swollen and irritated looking they looked at it and told her if it started outwardly oozing or bleeding to come to the ER immediately because if she is on a blood thinner. It started bleeding today so she came to the ER for further evaluation and treatment. Bleeding is controlled. There is no odor or erythema streaking. Review of Systems General: Reports: 10 or more systems reviewed and unremarkable except in HPI and below PFSH ED PFSH: Medical History Morbid obesity with alveolar hypoventilation Left bundle branch block Third degree heart block GERD (gastroesophageal reflux disease) Irritable bowel syndrome Venous (peripheral) insufficiency Diastolic heart failure Lumbar disc disease with radiculopathy Hypothyroid Hypothalamic hypothyroidism Hypertension Neuropathy DDD (degenerative disc disease) Palpitation Essential hypertension Surgical History S/P cataract surgery S/P lens implant History of tonsillectomy History of carpal tunnel release Status post placement of cardiac pacemaker Family History Other CAD (coronary artery disease) Cancer Social History Smoking and tobacco/nicotine status: never used tobacco/nicotine Alcohol intake: never Substance/Drug Use: never Physical Exam Const: COMMON NORMALS: no acute distress, average body habitus, patient oriented x3, no limitations, healthy appearing, alert and well nourished Neck/C-Spine: COMMON NORMALS: no JVD Chest: COMMONS NORMALS: normal inspection of the chest and normal palpation of entire chest wall Resp: COMMON NORMALS: normal respiratory effort, No retractions, No use of accessory muscles and clear to auscultation bilaterally AUSCULTATION: clear to auscultation bilaterally Cardio: COMMON NORMALS: no JVD, regular rate, regular rhythm, S1 normal heart sound present, S2 normal heart sound present, No gallops present (Cardio), No clicks present (Cardio), No murmurs present (Cardio) and No rub (Cardio) RATE: regular rate RHYTHM: regular rhythm HEART SOUNDS: S1 normal heart sound present and S2 normal heart sound present GI: COMMON NORMALS: Normal to inspection, nondistended, normoactive bowel sounds present, Soft to palpation, non-tender, No hepatosplenomegaly present and no masses PALPATION: Yes Soft to palpation and Yes No hepatosplenomegaly present Extremity: NARRATIVE EXTREMITY EXAM: There is a hematoma on the left anterior kwan approximately 5 cm long by 3 cm w jesika. There is oozing from the lower portion of it. This area was incised and clot was expressed and culture was taken. Patient tolerated the procedure well. Neuro: COMMON NORMALS: patient oriented x3 SENSORIUM/ORIENTATION: Yes alert Course Vital Signs: Vital signs: Vital Signs Temperature 97.8 F 09/13/23 13:12 Pulse Rate 92 09/13/23 18:12 Respiratory Rate 18 09/13/23 18:12 Blood Pressure 104/74 09/13/23 18:12 Pulse Oximetry 99 09/13/23 18:12 Oxygen Delivery Me thod Room Air 09/13/23 18:12 Oxygen Flow Rate 2 09/13/23 13:12 MDM - Extremity (Nontraumatic) Medical Decision Making Patient presents to the ER for evaluation of hematoma on her left anterior kwan. Patient is on Eliquis. Area was incised o'clock was expressed. Culture was obtained. Patient be placed on Keflex for prophylactic treatment. Patient should follow-up with her PCP in approximately 7 days or sooner for further evaluation and treatment. Differential Diagnosis Unlikely herpes zoster, gout, cellulitis, superficial thrombophlebitis, deep venous thrombosis of upper extremity, lower extremity edema or deep vein thrombosis of lower extremity Medical Records I reviewed the patient's medical records. Lab Data I reviewed the patient's lab results. No radiology studies performed this visit Discharge Plan Discharge Patient Disposition: Home Clinical Impression: Hematoma of lower extremity, Anticoagulation adequate Condition: Stable Prescriptions: No Action lysine [L-Lysine] 500 mg tablet 500 mg PO DAILY PRN (Reason: cold sores) pyridoxine (vitamin B6) [Vitamin B-6] 100 mg tablet 50 mg PO DAILY hydrocodone-acetaminophen 5-325 mg tablet 1 tab PO Q4H PRN (Reason: pain) 7 Days Qty: 42 0RF levothyroxine 100 mcg tablet 100 mcg PO DAILY Qty: 90 3RF potassium chloride 20 mEq tablet extended release 20 meq PO DAILY Qty: 90 3RF famotidine 20 mg tablet See Rx Instructions .ROUTE .COMPLEX Qty: 180 0RF Dose Instruction: TAKE 1 TABLET BY MOUTH TWICE A DAY Rx Instructions: TAKE 1 TABLET BY MOUTH TWICE A DAY furosemide 20 mg tablet See Rx Instructions .ROUTE .COMPLEX Qty: 90 3RF Dose Instruction: TAKE 1 TABLET BY MOUTH EVERY DAY NEEDED FOR EDEMA Rx Instructions: TAKE 1 TABLET BY MOUTH EVERY DAY NEEDED FOR EDEMA diltiazem HCl 60 mg capsule,extended release 12 hr 60 mg PO BID Qty: 180 3RF metoprolol tartrate 25 mg tablet 25 mg PO BID Qty: 180 3RF Eliquis 5 mg tablet 5 mg PO BID Qty: 180 3RF gabapentin 800 mg tablet See Rx Instructions .ROUTE .COMPLEX Qty: 270 1RF Dose Instruction: TAKE 1 TABLET BY MOUTH THREE TIMES A DAY Rx Instructions: TAKE 1 TABLET BY MOUTH THREE TIMES A DAY gabapentin 100 mg capsule See Rx Instructions .ROUTE .COMPLEX Qty: 270 1RF Dose Instruction: TAKE 1 CAPSULE BY MOUTH THREE TIMES A DAY Rx Instructions: TAKE 1 CAPSULE BY MOUTH THREE TIMES A DAY Discharge Orders: Discharge ED (Routine); Ordered 09/13/23 Ordered By: Elder Le Referrals: Kendrick Nova MD [Primary Care Provider] - 1 week Patient Instructions: Incision and Drainage (ED), Hematoma (ED) Activity Restrictions/Additional Instructions: Your hematoma was incised and drained in ER. Please keep the wound clean and dry and change dressings as necessary. Please take all your antibiotics. Please follow-up with your family practice physician within the next 7 days for further evaluation and treatment. If your wound starts bleeding uncontrollably or has a foul odor or is more painful than previous or there is red streaking please return to the ER. Coding Level of Care Code ED [employer] for Mela Arriaza
[2023-09-13] MEDS: cephALEXin 500 mg Capsule PO (18:32)
[2023-09-13 18:40] VITALS: BP 193/81; PULSE 82; RESP 18; O2SAT 100
== END 2023-09-13 18:48 | disposition home or self-care (01) ==
PROVIDERS: Emergency Provider Emergency Medicine; PCP Family Medicine
DX: S80.12XA Contusion of left lower leg, initial encounter (principal); Z79.01 Long term (current) use of anticoagulants; I11.0 Hypertensive heart disease with heart failure; I50.9 Heart failure, unspecified; Z95.0 Presence of cardiac pacemaker; W20.8XXA Other cause of strike by thrown, projected or falling object, initial encounter
CPT/HCPCS: 87070; 87077; 87186; 99283

== ENCOUNTER → 2023-10-03 12:17 | Outpatient (BNVA) | payer MEDICARE, MEDICAID, SELFPAY | PROVIDERS: PCP Family Medicine; Visit Provider Family Medicine | DX: I10 Essential (primary) hypertension (principal); E03.9 Hypothyroidism, unspecified; I48.91 Unspecified atrial fibrillation | CPT/HCPCS: 80053; 84443; 85025; 99212; A6212 ==

== ENCOUNTER → 2023-12-05 11:21 | Outpatient (BNVA) | payer MEDICARE, MEDICAID, SELFPAY | PROVIDERS: PCP Family Medicine; Visit Provider Family Medicine | DX: N39.0 Urinary tract infection, site not specified (principal) | CPT/HCPCS: 81000 ==

== ENCOUNTER → 2023-12-11 11:49 | Outpatient (BNVA) | payer MEDICARE, MEDICAID, SELFPAY | PROVIDERS: PCP Family Medicine; Visit Provider Family Medicine | DX: R30.0 Dysuria (principal) | CPT/HCPCS: 81000 ==

== ENCOUNTER → 2024-01-16 10:22 | Outpatient (BNVA) | payer MEDICARE, SELFPAY | PROVIDERS: PCP Family Medicine; Visit Provider Nurse Practitioner Family | DX: Z95.0 Presence of cardiac pacemaker (principal); I48.19 Other persistent atrial fibrillation; I11.0 Hypertensive heart disease with heart failure; I50.32 Chronic diastolic (congestive) heart failure; Z79.01 Long term (current) use of anticoagulants | CPT/HCPCS: 99214 ==

== ENCOUNTER → 2024-01-25 11:55 | Outpatient (BNVA) | payer MEDICARE, SELFPAY | PROVIDERS: PCP Family Medicine; Visit Provider Family Medicine | DX: N30.00 Acute cystitis without hematuria (principal) | CPT/HCPCS: 81000 ==

== ENCOUNTER 2024-02-01 22:34 | Emergency (ER) | payer MEDICARE, MEDICAID, SELFPAY ==
[2024-02-01 22:36] VITALS: BP 155/98; PULSE 80; RESP 20; TEMP 36.6; O2SAT 90; BMI 36.6
--- NOTE | 2024-02-01 22:38 | W.ED.CHESTPA ---
Documented by User: JEFF Rutherford 02/02/24 01:03 HPI - Chest Pain General: Chief Complaint: Chest Pain Stated Complaint: CP Time Seen by Provider: 02/01/24 22:37 History of Present Illness: 83-year-old female comes in today for complaints of left chest pain that started about 8 9:00 this evening. Patient reported an episode x 1 that resolved and she has been pain-free since. Patient was brought to the ER for evaluation. Patient appears nontoxic. Patient denies any pain at this time. Patient is alert and oriented. Patient has a history of atrial fibs, pacemaker insertion, anticoagulation, and neuropathy. Patient also takes medications for pain, nausea, hypothyroidism, and overactive bladder. Review of Systems General: Reports: 10 or more systems reviewed and unremarkable except in HPI and below PFSH ED PFSH: Medical History Urinary tract infection Morbid obesity with alveolar hypoventilation Left bundle branch block Third degree heart block GERD (gastroesophageal reflux disease) Irritable bowel syndrome Venous (peripheral) insufficiency Diastolic heart failure Lumbar disc disease with radiculopathy Hypothyroid Hypothalamic hypothyroidism Hypertension Neuropathy DDD (degenerative disc disease) Palpitation Essential hypertension Surgical History S/P cataract surgery S/P lens implant History of tonsillectomy History of carpal tunnel release Status post placement of cardiac pacemaker Family History Other CAD (coronary artery disease) Cancer Social History Smoking and tobacco/nicotine status: never used tobacco/nicotine Alcohol intake: never Substance/Drug Use: never Physical Exam Const: COMMON NORMALS: alert HENMT: COMMON NORMALS: normocephalic HEAD & SCALP: normocephalic Neck/C-Spine: COMMON NORMALS: full ROM Resp: COMMON NORMALS: normal respiratory effort and clear to auscultation bilaterally AUSCULTATION: clear to auscultation bilaterally Cardio: COMMON NORMALS: regular rate and regular rhythm RATE: regular rate RHYTHM: regular rhythm GI: COMMON NORMALS: Soft to palpation PALPATION: Yes Soft to palpation and No Tenderness to palpation present (GI) Back/Pelvis: COMMON NORMALS: thoracic and lumbar spine normal to inspection Extremity: NARRATIVE EXTREMITY EXAM: Bilateral pedal edema Neuro: SENSORIUM/ORIENTATION: Yes alert Skin: COMMON NORMALS: turgor normal GENERAL SKIN EXAM: turgor normal Course Vital Signs: Vital signs: Vital Signs Temperature 98 F 02/01/24 22:36 Pulse Rate 76 02/02/24 01:12 Respiratory Rate 17 02/02/24 01:12 Blood Pressure 136/50 02/02/24 01:12 Pulse Oximetry 98 02/02/24 01:12 Oxygen Delivery Me thod Nasal Cannula 02/02/24 01:12 Oxygen Flow Rate 2 02/02/24 01:12 MDM - Chest Pain Medical Decision Making 83-year-old female comes in today for complaints of episode of chest pain that is resolved at this time. Patient reported a short 1 minute episode of chest pain. Patient denies any pain or discomfort at this time. Patient appears nontoxic. Respirations are even lungs are clear to auscultation. Heart rate is regular. Patient does have some +2 pitting edema bilateral lower extremities. Differential diagnosis includes gastritis, hiatal hernia, angina, ACS, anxiety. 0100. Reviewed patient with Dr. Le who is assuming care of the patient at the end of my shift. We are awaiting repeat troponin and a CTA of the chest with abdomen to follow due to abnormal x-ray of the chest showing widening of the mediastinum. Lab Data 02/01/24 23:01 02/01/24 23:01 Radiology Impressions Chest X-Ray 02/01/24 22:41 IMPRESSION: 1. Mediastinum appears prominent, consider chest CT for further evaluation. 2. Cardiomegaly and minimal pulmonary vascular congestion. 3. Left-sided pacemaker. Chest/Abdomen/Pelvis CT 02/02/24 00:50 IMPRESSION: 1. There are no acute chest findings. 2. There is no evidence for pulmonary emboli. 3. There is no aneurysmal dilatation, dissection or extravasation visualized thoracic aorta. 4. Small hiatal hernia 5. Mediastinal lipomatosis IMPRESSION: 1. Numerous small gallstones without evidence of cholecystitis 2. Diverticulosis of the sigmoid colon 3. Cystic mass associated with the left ovary or adnexa measuring up 4.1 cm. Ultrasound follow-up in 6-12 months is recommended. (Reference: Minh) REFERENCES: Minh et al. Management of Incidental Adnexal Findings on CT and MRI: A White Paper of the ACR Incidental Findings Committee, J Am Jamia Radiol. 2019;17(2):248-254. Laboratory Results WBC 6.28 10^3/uL (3.29-11.43) 02/01/24 23: RBC 4.08 10^6/uL (3.85-5.65) 02/01/24 23:01 Hgb 11.20 g/dL (11.27-16.99) L 02/01/24 23: Hct 37.4 % (36-47) 02/01/24 23: MCV 91.7 fl (85-98) 02/01/24 23: MCH 27.5 pg (27-33) 02/01/24 23: MCHC 29.9 g/dL (30-55) L 02/01/24 23: RDW 12.6 % (12.1-15.1) 02/01/24 23:01 Plt Count 206 10^3/cmm (157-399) 02/01/24 23:01 MPV 10.5 fL (7.4-10.4) H 02/01/24 23:01 Neut % (Auto) 59.8 % 02/01/24 23:01 Lymph % (Auto) 22.9 % 02/01/24 23:01 [place] % (Auto) 11.1 % 02/01/24 23:01 Eos % (Auto) 4.9 % 02/01/24 23:01 Baso % (Auto) 0.8 % 02/01/24 23:01 Neut # (Auto) 3.75 10^3/uL (1.8-7.7) 02/01/24 23:01 Lymph # (Auto) 1.4 10^3/uL (0.8-4.8) 02/01/24 23:01 [place] # (Auto) 0.7 10^3/uL (0.2-0.9) 02/01/24 23:01 Eos # (Auto) 0.3 10^3/uL (0.0-0.8) 02/01/24 23:01 Baso # (Auto) 0.1 10^3/uL (0.0-0.1) 02/01/24 23:01 Nucleated RBC % (auto) 0 % 02/01/24 23:01 Nucleated RBCs # 0.0 /100WBC 02/01/24 23:01 Sodium 138 mmol/L (136-145) 02/01/24 23:01 Potassium 4.0 mmol/L (3.5-5.1) 02/01/24 23:01 Chloride 96 mmol/L (98-107) L 02/01/24 23:01 Carbon Dioxide 32 mmol/L (22-29) H 02/01/24 23:01 Anion Gap 14.0 (5-19) 02/01/24 23:01 BUN 14 mg/dL (8-23) 02/01/24 23:01 Creatinine 0.8 mg/dL (0.5-0.9) 02/01/24 23:01 GFR Calculation Not Reportable 02/01/24 23:01 Glucose 106 mg/dL (65-115) 02/01/24 23:01 Calculated Osmolality 287 mOsm/kg (285-295) 02/01/24 23:01 Calcium 9.1 mg/dL (8.5-10.5) 02/01/24 23:01 Total Bilirubin 0.3 mg/dL (0.15-1.2) 02/01/24 23:01 AST 25 U/L (0-32) 02/01/24 23:01 ALT 11 U/L (0-33) 02/01/24 23:01 Alkaline Phosphatase 117 U/L (35-105) H 02/01/24 23:01 Troponin T Baseline 13 ng/L (0-10) H 02/01/24 23:01 Troponin T 120 Minute 14.73 ng/L (0-10) H 02/02/24 01:34 Delta Troponin T 1.73 ABS# (0-10) 02/02/24 01:34 Total Protein 7.4 g/dL (6.6-8.7) 02/01/24 23:01 Albumin 3.8 g/dL (3.5-5.2) 02/01/24 23:01 Globulin 3.6 g/dL (1.3-4.6) 02/01/24 23:01 Urine Color Yellow (Yellow) 02/02/24 00:20 Urine Appearance Hazy (CLEAR) A 02/02/24 00:20 Urine pH 7 (5-7) 02/02/24 00:20 Ur Specific [place] 1.010 (1.005-1.030) 02/02/24 00:20 Urine Protein Neg (Negative) 02/02/24 00:20 Urine Glucose (UA) Norm (Normal) 02/02/24 00:20 Urine Ketones Negative (Negative) 02/02/24 00:20 Urine Blood 2+ (Negative) H 02/02/24 00:20 Urine Nitrate Positive (Negative) H 02/02/24 00:20 Urine Bilirubin Neg (Negative) 02/02/24 00:20 Urine Urobilinogen Neg mg/dL (Negative) 02/02/24 00:20 Ur Leukocyte Esterase 2+ (Negative) H 02/02/24 00:20 Urine RBC 5-10 /hpf (0-2) H 02/02/24 00:20 Urine WBC 25-40 /hpf (0-5) H 02/02/24 00:20 Ur Squamous Epith Cells 0-4 /hpf (0-5) H 02/02/24 00:20 Amorphous Sediment Not Reportable 02/02/24 00:20 Urine Bacteria 3+ /hpf (NONE) H 02/02/24 00:20 Urine Mucus 2+ /hpf 02/02/24 00:20 EKG Data EKG 1: I personally reviewed and interpreted this EKG as follows: EKG interpretation date: 02/01/24 EKG interpretation time: 22:50 Prior EKG tracings: not available for review Interpretation: EKG shows electronic ventricular paced rhythm regular at [address] elevation was noted. No prior exam was available for comparison. Computer generated interpretation: Electronic ventricular pacemaker, abnormal rhythm EKG, unconfirmed report. Discharge Plan Discharge Patient Disposition: Home Clinical Impression: Atypical chest pain Urinary tract infection Qualifiers: Urinary tract infection type: acute cystitis Hematuria presence: without hematuria Qualified Code(s): N30.00 - Acute cystitis without hematuria Condition: Stable Prescriptions: New ciprofloxacin HCl 500 mg tablet 500 mg PO Q12H Qty: 20 0RF No Action lysine [L-Lysine] 500 mg tablet 500 mg PO DAILY PRN (Reason: cold sores) pyridoxine (vitamin B6) [Vitamin B-6] 100 mg tablet 50 mg PO DAILY Probiotic (B. coagulans) 1 billion cell tablet,chewable PO miscellaneous medical supply Misc 1 ea miscellaneous DAILY Qty: 1 0RF Rx Instructions: medihoney- apply to wound once daily ondansetron 8 mg tablet,disintegrating 8 mg PO Q8H PRN (Reason: nausea and vomiting) 5 Days Qty: 15 0RF gabapentin 100 mg capsule 100 mg PO BID Qty: 270 1RF Rx Instructions: 100 mg orally twice a day; gabapentin 800 mg tablet 800 mg PO BID Qty: 270 1RF hydrocodone-acetaminophen 5-325 mg tablet 1 tab PO Q4H PRN (Reason: pain) 7 Days Qty: 42 0RF famotidine 20 mg tablet See Rx Instructions .ROUTE .COMPLEX Qty: 180 0RF Dose Instruction: TAKE 1 TABLET BY MOUTH TWICE A DAY Rx Instructions: TAKE 1 TABLET BY MOUTH TWICE A DAY furosemide 20 mg tablet See Rx Instructions .ROUTE .COMPLEX Qty: 90 3RF Dose Instruction: TAKE 1 TABLET BY MOUTH EVERY DAY NEEDED FOR EDEMA Rx Instructions: TAKE 1 TABLET BY MOUTH EVERY DAY NEEDED FOR EDEMA diltiazem HCl 60 mg capsule,extended release 12 hr 60 mg PO BID Qty: 180 3RF metoprolol tartrate 25 mg tablet 25 mg PO BID Qty: 180 3RF Eliquis 5 mg tablet 5 mg PO BID Qty: 180 3RF potassium chloride 20 mEq tablet extended release 20 meq PO DAILY Qty: 90 3RF levothyroxine 100 mcg tablet See Rx Instructions .ROUTE .COMPLEX Qty: 90 3RF Dose Instruction: TAKE 1 TABLET BY MOUTH DAILY Rx Instructions: TAKE 1 TABLET BY MOUTH DAILY oxybutynin chloride 5 mg tablet See Rx Instructions .ROUTE .COMPLEX Qty: 90 3RF Dose Instruction: TAKE 1 TABLET BY MOUTH EVERY DAY Rx Instructions: TAKE 1 TABLET BY MOUTH EVERY DAY nitrofurantoin macrocrystal [Macrodantin] 100 mg capsule 100 mg PO BID Qty: 30 0RF Rx Instructions: must administer with a meal/food Discharge Orders: Discharge ED (Routine); Ordered 02/02/24 Ordered By: Elder Le Referrals: Kendrick Nova MD [Primary Care Provider] - 1 week Patient Instructions: Chest Pain (DC), Urinary Tract Infection - Women Activity Restrictions/Additional Instructions: Your evaluation in the ER did not show any acute cardiac cause of your chest pain but it did show you have an a urinary tract infection. Please take all your antibiotics as directed. Please follow-up with your family proximal physician in the next 7 days for further evaluation and treatment. If your chest pain returns please feel free to return to the ER. Coding Level of Care Code ED Professor Of Psychiatry for Chg Fwd Documented by User: Elder Le DO 02/02/24 04:47 HPI - Chest Pain General: Chief Complaint: Chest Pain Stated Complaint: CP Time Seen by Provider: 02/01/24 22:37 PFSH ED PFSH: Medical History Urinary tract infection Morbid obesity with alveolar hypoventilation Left bundle branch block Third degree heart block GERD (gastroesophageal reflux disease) Irritable bowel syndrome Venous (peripheral) insufficiency Diastolic heart failure Lumbar disc disease with radiculopathy Hypothyroid Hypothalamic hypothyroidism Hypertension Neuropathy DDD (degenerative disc disease) Palpitation Essential hypertension Surgical History S/P cataract surgery S/P lens implant History of tonsillectomy History of carpal tunnel release Status post placement of cardiac pacemaker Family History Other CAD (coronary artery disease) Cancer Social History Smoking and tobacco/nicotine status: never used tobacco/nicotine Alcohol intake: never Substance/Drug Use: never Course Vital Signs: Vital signs: Vital Signs Temperature 98 F 02/01/24 22:36 Pulse Rate 76 02/02/24 01:12 Respiratory Rate 17 02/02/24 01:12 Blood Pressure 136/50 02/02/24 01:12 Pulse Oximetry 98 02/02/24 01:12 Oxygen Delivery Me thod Nasal Cannula 02/02/24 01:12 Oxygen Flow Rate 2 02/02/24 01:12 MDM - Chest Pain Medical Decision Making 83-year-old female comes in today for complaints of episode of chest pain that is resolved at this time. Patient reported a short 1 minute episode of chest pain. Patient denies any pain or discomfort at this time. Patient appears nontoxic. Respirations are even lungs are clear to auscultation. Heart rate is regular. Patient does have some +2 pitting edema bilateral lower extremities. Differential diagnosis includes gastritis, hiatal hernia, angina, ACS, anxiety. 0100. Reviewed patient with Dr. Le who is assuming care of the patient at the end of my shift. We are awaiting repeat troponin and a CTA of the chest with abdomen to follow due to abnormal x-ray of the chest showing widening of the mediastinum. CTA of the chest abdomen pelvis were reviewed which was negative for acute findings. Patient be put on antibiotic for urinary tract infection and discharged home to follow-up with her PCP Lab Data 02/01/24 23:01 02/01/24 23:01 Radiology Impressions Chest X-Ray 02/01/24 22:41 IMPRESSION: 1. Mediastinum appears prominent, consider chest CT for further evaluation. 2. Cardiomegaly and minimal pulmonary vascular congestion. 3. Left-sided pacemaker. Chest/Abdomen/Pelvis CT 02/02/24 00:50 IMPRESSION: 1. There are no acute chest findings. 2. There is no evidence for pulmonary emboli. 3. There is no aneurysmal dilatation, dissection or extravasation visualized thoracic aorta. 4. Small hiatal hernia 5. Mediastinal lipomatosis IMPRESSION: 1. Numerous small gallstones without evidence of cholecystitis 2. Diverticulosis of the sigmoid colon 3. Cystic mass associated with the left ovary or adnexa measuring up 4.1 cm. Ultrasound follow-up in 6-12 months is recommended. (Reference: Minh) REFERENCES: Minh et al. Management of Incidental Adnexal Findings on CT and MRI: A White Paper of the ACR Incidental Findings Committee, J Am Jamia Radiol. 2019;17(2):248-254. Laboratory Results WBC 6.28 10^3/uL (3.29-11.43) 02/01/24 23:01 RBC 4.08 10^6/uL (3.85-5.65) 02/01/24 23: Hgb 11.20 g/dL (11.27-16.99) L 02/01/24 23: Hct 37.4 % (36-47) 02/01/24 23: MCV 91.7 fl (85-98) 02/01/24 23:01 MCH 27.5 pg (27-33) 02/01/24 23: MCHC 29.9 g/dL (30-55) L 02/01/24 23:01 RDW 12.6 % (12.1-15.1) 02/01/24 23: Plt Count 206 10^3/cmm (157-399) 02/01/24 23: MPV 10.5 fL (7.4-10.4) H 02/01/24 23:01 Neut % (Auto) 59.8 % 02/01/24 23:01 Lymph % (Auto) 22.9 % 02/01/24 23: [place] % (Auto) 11.1 % 02/01/24 23:01 Eos % (Auto) 4.9 % 02/01/24 23:01 Baso % (Auto) 0.8 % 02/01/24 23:01 Neut # (Auto) 3.75 10^3/uL (1.8-7.7) 02/01/24 23:01 Lymph # (Auto) 1.4 10^3/uL (0.8-4.8) 02/01/24 23:01 [place] # (Auto) 0.7 10^3/uL (0.2-0.9) 02/01/24 23:01 Eos # (Auto) 0.3 10^3/uL (0.0-0.8) 02/01/24 23:01 Baso # (Auto) 0.1 10^3/uL (0.0-0.1) 02/01/24 23: Nucleated RBC % (auto) 0 % 02/01/24 23: Nucleated RBCs # 0.0 /100WBC 02/01/24 23:01 Sodium 138 mmol/L (136-145) 02/01/24 23: Potassium 4.0 mmol/L (3.5-5.1) 02/01/24 23:01 Chloride 96 mmol/L (98-107) L 02/01/24 23:01 Carbon Dioxide 32 mmol/L (22-29) H 02/01/24 23:01 Anion Gap 14.0 (5-19) 02/01/24 23:01 BUN 14 mg/dL (8-23) 02/01/24 23:01 Creatinine 0.8 mg/dL (0.5-0.9) 02/01/24 23:01 GFR Calculation Not Reportable 02/01/24 23:01 Glucose 106 mg/dL (65-115) 02/01/24 23:01 Calculated Osmolality 287 mOsm/kg (285-295) 02/01/24 23:01 Calcium 9.1 mg/dL (8.5-10.5) 02/01/24 23:01 Total Bilirubin 0.3 mg/dL (0.15-1.2) 02/01/24 23:01 AST 25 U/L (0-32) 02/01/24 23:01 ALT 11 U/L (0-33) 02/01/24 23:01 Alkaline Phosphatase 117 U/L (35-105) H 02/01/24 23:01 Troponin T Baseline 13 ng/L (0-10) H 02/01/24 23:01 Troponin T 120 Minute 14.73 ng/L (0-10) H 02/02/24 01:34 Delta Troponin T 1.73 ABS# (0-10) 02/02/24 01:34 Total Protein 7.4 g/dL (6.6-8.7) 02/01/24 23:01 Albumin 3.8 g/dL (3.5-5.2) 02/01/24 23:01 Globulin 3.6 g/dL (1.3-4.6) 02/01/24 23:01 Urine Color Yellow (Yellow) 02/02/24 00:20 Urine Appearance Hazy (CLEAR) A 02/02/24 00:20 Urine pH 7 (5-7) 02/02/24 00:20 Ur Specific [place] 1.010 (1.005-1.030) 02/02/24 00:20 Urine Protein Neg (Negative) 02/02/24 00:20 Urine Glucose (UA) Norm (Normal) 02/02/24 00:20 Urine Ketones Negative (Negative) 02/02/24 00:20 Urine Blood 2+ (Negative) H 02/02/24 00:20 Urine Nitrate Positive (Negative) H 02/02/24 00:20 Urine Bilirubin Neg (Negative) 02/02/24 00:20 Urine Urobilinogen Neg mg/dL (Negative) 02/02/24 00:20 Ur Leukocyte Esterase 2+ (Negative) H 02/02/24 00:20 Urine RBC 5-10 /hpf (0-2) H 02/02/24 00:20 Urine WBC 25-40 /hpf (0-5) H 02/02/24 00:20 Ur Squamous Epith Cells 0-4 /hpf (0-5) H 02/02/24 00:20 Amorphous Sediment Not Reportable 02/02/24 00:20 Urine Bacteria 3+ /hpf (NONE) H 02/02/24 00:20 Urine Mucus 2+ /hpf 02/02/24 00:20 All radiology interpretation(s) finalized by discharge Discharge Plan Discharge Patient Disposition: Home Clinical Impression: Atypical chest pain Urinary tract infection Qualifiers: Urinary tract infection type: acute cystitis Hematuria presence: without hematuria Qualified Code(s): N30.00 - Acute cystitis without hematuria Condition: Stable Prescriptions: New ciprofloxacin HCl 500 mg tablet 500 mg PO Q12H Qty: 20 0RF No Action lysine [L-Lysine] 500 mg tablet 500 mg PO DAILY PRN (Reason: cold sores) pyridoxine (vitamin B6) [Vitamin B-6] 100 mg tablet 50 mg PO DAILY Probiotic (B. coagulans) 1 billion cell tablet,chewable PO miscellaneous medical supply Mis 1 ea miscellaneous DAILY Qty: 1 0RF Rx Instructions: medihoney- apply to wound once daily ondansetron 8 mg tablet,disintegrating 8 mg PO Q8H PRN (Reason: nausea and vomiting) 5 Days Qty: 15 0RF gabapentin 100 mg capsule 100 mg PO BID Qty: 270 1RF Rx Instructions: 100 mg orally twice a day; gabapentin 800 mg tablet 800 mg PO BID Qty: 270 1RF hydrocodone-acetaminophen 5-325 mg tablet 1 tab PO Q4H PRN (Reason: pain) 7 Days Qty: 42 0RF famotidine 20 mg tablet See Rx Instructions .ROUTE .COMPLEX Qty: 180 0RF Dose Instruction: TAKE 1 TABLET BY MOUTH TWICE A DAY Rx Instructions: TAKE 1 TABLET BY MOUTH TWICE A DAY furosemide 20 mg tablet See Rx Instructions .ROUTE .COMPLEX Qty: 90 3RF Dose Instruction: TAKE 1 TABLET BY MOUTH EVERY DAY NEEDED FOR EDEMA Rx Instructions: TAKE 1 TABLET BY MOUTH EVERY DAY NEEDED FOR EDEMA diltiazem HCl 60 mg capsule,extended release 12 hr 60 mg PO BID Qty: 180 3RF metoprolol tartrate 25 mg tablet 25 mg PO BID Qty: 180 3RF Eliquis 5 mg tablet 5 mg PO BID Qty: 180 3RF potassium chloride 20 mEq tablet extended release 20 meq PO DAILY Qty: 90 3RF levothyroxine 100 mcg tablet See Rx Instructions .ROUTE .COMPLEX Qty: 90 3RF Dose Instruction: TAKE 1 TABLET BY MOUTH DAILY Rx Instructions: TAKE 1 TABLET BY MOUTH DAILY oxybutynin chloride 5 mg tablet See Rx Instructions .ROUTE .COMPLEX Qty: 90 3RF Dose Instruction: TAKE 1 TABLET BY MOUTH EVERY DAY Rx Instructions: TAKE 1 TABLET BY MOUTH EVERY DAY nitrofurantoin macrocrystal [Macrodantin] 100 mg capsule 100 mg PO BID Qty: 30 0RF Rx Instructions: must administer with a meal/food Discharge Orders: Discharge ED (Routine); Ordered 02/02/24 Ordered By: Elder Le Referrals: Kendrick Nova MD [Primary Care Provider] - 1 week Patient Instructions: Chest Pain (DC), Urinary Tract Infection - Women Activity Restrictions/Additional Instructions: Your evaluation in the ER did not show any acute cardiac cause of your chest pain but it did show you have an a urinary tract infection. Please take all your antibiotics as directed. Please follow-up with your family proximal physician in the next 7 days for further evaluation and treatment. If your chest pain returns please feel free to return to the ER. Coding Level of Care Code ED Professor Of Psychiatry for Mela Arriaza
--- NOTE | 2024-02-01 22:41 | XRR_ITS ---
PROCEDURE INFORMATION: Exam: XR Chest Exam date and time: 02/01/2024 11:13 PM Age: 83 years old Clinical indication: Chest wall pain; Additional info: Chest pain TECHNIQUE: Imaging protocol: Radiologic exam of the chest. Views: 1 view. COMPARISON: CR XR chest 1V portable [id number] 04/14/2022 9:52 AM FINDINGS: Tubes, catheters and devices: Left-sided pacemaker. Lungs: See Heart/Mediastinum finding. Pleural spaces: Unremarkable. No pleural effusion. No pneumothorax. Heart/Mediastinum: Mediastinum appears prominent, consider chest CT for further evaluation. Cardiomegaly and minimal pulmonary vascular congestion. Bones/joints: Unremarkable. XR/XR chest 1V portable [id number] IMPRESSION: 1. Mediastinum appears prominent, consider chest CT for further evaluation. 2. Cardiomegaly and minimal pulmonary vascular congestion. 3. Left-sided pacemaker.
--- NOTE | 2024-02-01 22:45 | ECG_ITS ---
[facility] Test Date: 2024-02-01 Pat Name: Jhoana Gandhi Department: Room: Gender: Female Sales Contracts Analyst: : 1940 Requested By: Frandy Penny Order Number: [id number] Melva MD: Elvis Orta M.D. Measurements Intervals [place] Rate: 77 P: 0 [place]: 0 QRS: 267 QRSD: 150 T: 69 QT: 387 QTc: 439 Interpretive Statements ELECTRONIC VENTRICULAR PACEMAKER Compared to ECG 04/14/2022 09:30:15 No significant changes Electronically Signed On 02-02-2024 9:20:19 CDT by Elvis Orta M.D. [email or web address] [email or web address] medical centerEdita Food Industriescleveland clinic [facility].[id number]
[2024-02-01 23:14] LABS: Basophils # 0.1 10^3/uL (0.0-0.1); Basophils % 0.8 %; Eosinophils # 0.3 10^3/uL (0.0-0.8); Eosinophils % 4.9 %; Hematocrit 37.4 % (36-47); Lymphocytes # 1.4 10^3/uL (0.8-4.8); Lymphocytes % 22.9 %; Mean Corpuscular HGB Conc 29.9 g/dL (30-55); Mean Corpuscular Hemoglobin 27.5 pg (27-33); Mean Corpuscular Volume 91.7 fl (85-98); Mean Platelet Volume 10.5 fL (7.4-10.4); Monocytes # 0.7 10^3/uL (0.2-0.9); Monocytes % 11.1 %; Neutrophils # 3.75 10^3/uL (1.8-7.7); Neutrophils % 59.8 %; Nucleated Red Blood Cells % 0 %; Platelet Count 206 10^3/cmm (157-399); Red Blood Count 4.08 10^6/uL (3.85-5.65); Red Cell Distribution Width 12.6 % (12.1-15.1); White Blood Count 6.28 10^3/uL (3.29-11.43)
[2024-02-01 23:36] LABS: Troponin(5th) Baseline 13 ng/L (0-10)
[2024-02-01 23:42] VITALS: BP 150/59; PULSE 79; RESP 16; O2SAT 98
[2024-02-01 23:44] LABS: Alanine Aminotransferase 11 U/L (0-33); Albumin Level 3.8 g/dL (3.5-5.2); Alkaline Phosphatase 117 U/L (35-105); Aspartate Amino Transferase 25 U/L (0-32); Blood Urea Nitrogen 14 mg/dL (8-23); Calcium 9.1 mg/dL (8.5-10.5); Carbon Dioxide 32 mmol/L (22-29); Chloride 96 mmol/L (98-107); Creatinine Clr Calc Pharmacy 55.8077; Globulin 3.6 g/dL (1.3-4.6); Glucose 106 mg/dL (65-115); Osmolality Calculated 287 mOsm/kg (285-295); Sodium 138 mmol/L (136-145); Total Bilirubin 0.3 mg/dL (0.15-1.2); Total Protein 7.4 g/dL (6.6-8.7)
[2024-02-02] VITALS (9 sets, daily range): BP systolic 125–160; BP diastolic 44–59; PULSE 64–82; RESP 14–21; O2SAT 94–100
--- NOTE | 2024-02-02 00:28 | ECG_ITS ---
[facility] Test Date: 2024-02-02 Pat Name: Jhoana Gandhi Department: Room: Gender: Female Heel Curver: : 1940 Requested By: Frandy Penny Order Number: [id number] Melva MD: Elvis Orta M.D. Measurements Intervals [place] Rate: 78 P: 0 [place]: 0 QRS: 268 QRSD: 150 T: 73 QT: 403 QTc: 462 Interpretive Statements ELECTRONIC VENTRICULAR PACEMAKER Compared to ECG 02/01/2024 22:45:12 No significant changes Electronically Signed On 02-02-2024 9:24:19 CDT by Elvis Orta M.D. [email or web address]
[2024-02-02 00:36] LABS: Add Urine Microscopic? YES; Bilirubin Urine Neg (Negative); Blood Urine 2+ (Negative); Glucose Urine UA Norm (Normal); Ketones Urine Negative (Negative); Leukocyte Esterase Urine 2+ (Negative); Nitrate Urine Positive (Negative); Protein Urine Neg (Negative); Urine Appearance Hazy (CLEAR); Urine Color Yellow (Yellow); Urobilinogen Urine Neg (Negative); pH Urine 7 (5-7)
[2024-02-02 00:37] LABS: Add Urine Culture? Yes; Bacteria Urine 3+ /hpf; Mucus Urine 2+ /hpf; Squamous Epithelial Cell Urine 0-4 /hpf (0-5); WBC Urine 25-40 /hpf (0-5)
--- NOTE | 2024-02-02 00:50 | CTR_ITS ---
PROCEDURE INFORMATION: Exam: CTA Chest Without And With Contrast Exam date and time: 02/02/2024 2:08 AM Age: 83 years old Clinical indication: Abdominal pain; Angina pectoris; Additional info: Widening mediast. TECHNIQUE: Imaging protocol: Computed tomographic angiography of the chest without and with contrast. Exam focused on the arteries. 3D rendering (Not supervised by radiologist): MIP and/or 3D reconstructed images were created by the technologist. Radiation optimization: All CT scans at this facility use at least one of these dose optimization techniques: automated exposure control; mA and/or kV adjustment per patient size (includes targeted exams where dose is matched to clinical indication); or iterative reconstruction. Contrast material: OMNI 350; Contrast volume: 100 ml; Contrast route: INTRAVENOUS (IV); COMPARISON: CT angio chest PE protcl [id number] 12/16/2018 3:36 PM RADIATION DOSE METRICS: Total DLP (mGy-cm): 790 FINDINGS: Pulmonary arteries: Normal. No pulmonary emboli. Aorta: Unremarkable. No aortic aneurysm. No aortic dissection. Lungs: There is a background of mild centrilobular emphysema and pulmonary fibrosis. Pleural spaces: A calcified granuloma seen in the right posterior costophrenic recess. Heart: Unremarkable. No cardiomegaly. No pericardial effusion. Mediastinal space: There is mild fatty prominence of the superior mediastinum. Lymph nodes: There are multiple stable partially calcified mediastinal and hilar lymph nodes present. Diaphragm: There is a small hiatal hernia present. Bones/joints: Unremarkable. No acute fracture. Soft tissues: Unremarkable. PROCEDURE INFORMATION: Exam: CT Abdomen And Pelvis With Contrast Exam date and time: 02/02/2024 2:08 AM Age: 83 years old Clinical indication: Abdominal pain; Angina pectoris; Additional info: Widening mediast. TECHNIQUE: Imaging protocol: Computed tomography of the abdomen and pelvis with contrast. Radiation optimization: All CT scans at this facility use at least one of these dose optimization techniques: automated exposure control; mA and/or kV adjustment per patient size (includes targeted exams where dose is matched to clinical indication); or iterative reconstruction. Contrast material: OMNI 350; Contrast volume: 100 ml; Contrast route: INTRAVENOUS (IV); COMPARISON: CR (CHEST, ) 02/01/2024 11:13 PM RADIATION DOSE METRICS: Total DLP (mGy-cm): 790 FINDINGS: Liver: Normal. No mass. Gallbladder and bile ducts: There are numerous small gallstones present. There are no inflammatory changes seen to suggest cholecystitis. Pancreas: Normal. No ductal dilation. Spleen: Normal. No splenomegaly. Adrenal glands: Normal. No mass. Kidneys and ureters: Normal. No hydronephrosis. Stomach and bowel: Diverticula are present sigmoid colon. There are no inflammatory changes present to suggest diverticulitis. Appendix: No evidence of appendicitis. Intraperitoneal space: Unremarkable. No free air. No significant fluid collection. Vasculature: Unremarkable. No abdominal aortic aneurysm. Lymph nodes: Unremarkable. No enlarged lymph nodes. Urinary bladder: Unremarkable as visualized. Reproductive: There is a hypoattenuation cystic mass associated with the left ovary or adnexa that measures 4.0 x 2.8 x 4.1 cm. Bones/joints: Diffuse loss of disc height is seen within the lumbar spine most prominently seen at L4-L5 compatible with degenerative disc disease. Soft tissues: Unremarkable. CT/CT angio chest w abd pel w con IMPRESSION: 1. There are no acute chest findings. 2. There is no evidence for pulmonary emboli. 3. There is no aneurysmal dilatation, dissection or extravasation visualized thoracic aorta. 4. Small hiatal hernia 5. Mediastinal lipomatosis IMPRESSION: 1. Numerous small gallstones without evidence of cholecystitis 2. Diverticulosis of the sigmoid colon 3. Cystic mass associated with the left ovary or adnexa measuring up 4.1 cm. Ultrasound follow-up in 6-12 months is recommended. (Reference: Minh) REFERENCES: Minh et al. Management of Incidental Adnexal Findings on CT and MRI: A White Paper of the ACR Incidental Findings Committee, J Am Jamia Radiol. 2020 Oct;17(2):248-254.
[2024-02-02 02:02] LABS: Troponin 5 2HR 14.73 ng/L (0-10); Troponin 5 2HR Delta 1.73 ABS# (0-10)
[2024-02-02] MEDS: cefTRIAXone 1,000 MG in sodium chloride 0.9% (plus) 50 ML 100 MG IV (02:59)
[2024-02-02] MEDS: iohexol 350 mg/mL 500 mL Btl (per mL) IV (03:09)
--- NOTE | 2024-02-02 03:17 | PC.NURSE ---
PT REQUESTS PAIN MEDICATION. DR REYES SAID PT CAN TAKE HER HOME MEDICATION, WHICH SHE BROUGHT WITH HER. NORCO 5/325MG PO Q4HRS PRN. PT NORMALLY TAKES HALF TAB. PT TOOK HALF TAB IN VIEW OF THIS NURSE.
--- NOTE | 2024-02-02 04:32 | ECG_ITS ---
[facility] Test Date: 2024-02-02 Pat Name: Jhoana Gandhi Department: Room: Gender: Female Auditing Specialist: : [id number] Requested By: Frandy Penny Order Number: [id number] Melva MD: Elvis Orta M.D. Measurements Intervals [place] Rate: 65 P: 0 NC: 0 QRS: 264 QRSD: 173 T: 64 QT: 474 QTc: 495 Interpretive Statements ELECTRONIC VENTRICULAR PACEMAKER Compared to ECG 02/02/2024 00:28:12 No significant changes Electronically Signed On 02-02-2024 9:23:01 CDT by Elvis Orta M.D. [id number]
== END 2024-02-02 05:21 | disposition home or self-care (01) ==
PROVIDERS: Emergency Provider Nurse Practitioner Family; PCP Family Medicine
DX: R07.89 Other chest pain (principal); N30.00 Acute cystitis without hematuria; Z79.01 Long term (current) use of anticoagulants; Z95.0 Presence of cardiac pacemaker; I11.0 Hypertensive heart disease with heart failure; I50.30 Unspecified diastolic (congestive) heart failure
CPT/HCPCS: 36415; 71045; 71275; 74177; 80053; 81001; 84484; 85025; 87077; 87086; 87186; 93005; 96365; 96366; 99285; J0696; Q9967

== ENCOUNTER 2024-02-12 11:33 | Outpatient (CLI) | payer MEDICARE, MEDICAID, SELFPAY ==
--- NOTE | 2024-02-12 11:36 | XRR_ITS ---
PROCEDURE INFORMATION: Exam: XR Lumbosacral Spine Exam date and time: 02/12/2024 11:48 AM Age: 83 years old Clinical indication: Low back pain; Patient HX: Back pain slipped disc multiple falls, several years. PT condition limited ability to produce optimal exam; Additional info: More pain in lower back TECHNIQUE: Imaging protocol: Radiologic exam of the lumbosacral spine. Views: 2 or 3 views. COMPARISON: CR XR lumbar spine f/e only [id number] 07/02/2018 2:23 PM FINDINGS: Bones/joints: Mild scoliosis. Mild grade 1 spondylolisthesis of L5 anteriorly on S1. 2 mm anterior subluxation of L3 and 2 mm posterior subluxation of L1 on L2 and of L2 on L3. Mild or moderate degenerative disc disease at all levels. 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 6 mm anterior subluxation of L5 on S1. Moderate bilateral sacroiliitis. Soft tissues: Unremarkable. Vasculature: Moderate amount of arterial calcification. XR/XR lumbar spine 2-3V* [id number] IMPRESSION: 1. No acute findings. 2. Additional details as above.
--- NOTE | 2024-02-12 11:36 | XRR_ITS ---
PROCEDURE INFORMATION: Exam: XR Thoracic Spine Exam date and time: 02/12/2024 11:48 AM Age: 83 years old Clinical indication: Pain in thoracic spine; Patient HX: Back pain slipped disc multiple falls, several years. PT condition limited ability to produce optimal exam; Additional info: Ongoing pain in upper/lower back TECHNIQUE: Imaging protocol: Radiologic exam of the thoracic spine. Views: 3 views. COMPARISON: CR XR lumbar spine 2-3V* [id number] 02/12/2024 11:48 AM FINDINGS: Bones/joints: Mild scoliosis. Multilevel spondylosis ranging from mild to severe. Mild-moderate kyphosis. Otherwise, unremarkable. Soft tissues: Unremarkable. XR/XR thoracic spine 2V [id number] IMPRESSION: 1. No acute findings. 2. Additional details as above.
== END 2024-02-12 11:34 | disposition home or self-care (01) ==
LOC: RAD 11:35
PROVIDERS: PCP Family Medicine; Visit Provider Family Medicine
DX: M47.9 Spondylosis, unspecified (principal); M51.37 Other intervertebral disc degeneration, lumbosacral region; M41.9 Scoliosis, unspecified; M43.17 Spondylolisthesis, lumbosacral region; M99.13 Subluxation complex (vertebral) of lumbar region; M47.817 Spondylosis without myelopathy or radiculopathy, lumbosacral region; M46.1 Sacroiliitis, not elsewhere classified
CPT/HCPCS: 72070; 72100

== ENCOUNTER 2024-05-15 08:46 | Outpatient (CLI) | payer MEDICARE, MEDICAID, SELFPAY ==
--- NOTE | 2024-05-15 09:00 | US_ITS ---
WS: [id number] RIGHT UPPER QUADRANT ULTRASOUND HISTORY: increased RUQ pain p 5 d: hx cholelithiasis COMPARISON: 04/27/2015, CT 02/02/2024 Liver: 14.1 cm in length. Liver is poorly visualized. The entire liver is not well visualized due to body habitus. It would be difficult to exclude mass or bile duct dilatation. Portal Vein: Normal hepatopetal flow with monophasic waveform. Gallbladder: Gallbladder appears slightly contracted with stones. Poorly visualized due to body habit us. CBD: 0.4 cm Pancreas: Not visualized. Right kidney: 9.6 cm in length. No hydronephrosis. Mild cortical thinning. No abnormality was noted i n the RIGHT kidney on the CT from 02/02/2024. Aorta and IVC: Normal. No ascites. US/US gall bladder [id number] IMPRESSION: 1. Technically very limited evaluation of the RIGHT upper quadrant due to body habitus. 2. Cholelithiasis. 3. No bile duct dilatation.
== END 2024-05-15 08:47 | disposition home or self-care (01) ==
LOC: RAD 08:47
PROVIDERS: PCP Family Medicine; Visit Provider Family Medicine
DX: K80.10 Calculus of gallbladder with chronic cholecystitis without obstruction (principal)
CPT/HCPCS: 76705; 80053; 81000; 85025

== ENCOUNTER → 2024-05-30 11:13 | Outpatient (BNVA) | payer MEDICARE, MEDICAID, SELFPAY | PROVIDERS: PCP Family Medicine; Visit Provider Family Medicine | DX: I10 Essential (primary) hypertension (principal); D64.9 Anemia, unspecified | CPT/HCPCS: 85025 ==

== ENCOUNTER → 2024-06-24 10:51 | Outpatient (BNVA) | payer MEDICARE, MEDICAID, SELFPAY | PROVIDERS: PCP Family Medicine; Visit Provider Family Medicine | DX: R30.0 Dysuria (principal) | CPT/HCPCS: 81000 ==

== ENCOUNTER → 2024-07-04 11:30 | Outpatient (BNVA) | payer MEDICARE, SELFPAY | PROVIDERS: PCP Family Medicine; Visit Provider Internal Medicine Cardiovascular Disease | DX: I87.2 Venous insufficiency (chronic) (peripheral) (principal); I50.32 Chronic diastolic (congestive) heart failure; I48.19 Other persistent atrial fibrillation | CPT/HCPCS: 36415; 80048; 83880; 99214 ==

== ENCOUNTER → 2024-08-26 11:31 | Outpatient (BNVA) | payer MEDICARE, SELFPAY | PROVIDERS: PCP Family Medicine; Visit Provider Family Medicine | DX: I10 Essential (primary) hypertension (principal) | CPT/HCPCS: 80053; 85025 ==

== ENCOUNTER → 2024-09-27 10:03 | Outpatient (BNVA) | payer MEDICARE, SELFPAY | PROVIDERS: PCP Family Medicine; Visit Provider Internal Medicine Cardiovascular Disease | DX: Z45.018 Encounter for adjustment and management of other part of cardiac pacemaker (principal) | CPT/HCPCS: 93280 ==

== ENCOUNTER → 2025-01-30 09:57 | Outpatient (BNVA) | payer MEDICARE, SELFPAY | PROVIDERS: PCP Family Medicine; Visit Provider Internal Medicine Cardiovascular Disease | DX: I48.19 Other persistent atrial fibrillation (principal); Z79.01 Long term (current) use of anticoagulants; I11.0 Hypertensive heart disease with heart failure; I50.32 Chronic diastolic (congestive) heart failure; R53.83 Other fatigue; I87.2 Venous insufficiency (chronic) (peripheral); E66.2 Morbid (severe) obesity with alveolar hypoventilation; Z68.42 Body mass index [BMI] 45.0-49.9, adult; Z95.0 Presence of cardiac pacemaker; N18.9 Chronic kidney disease, unspecified; R06.02 Shortness of breath | CPT/HCPCS: 36415; 80048; 84443; 85025; 99214 ==

== ENCOUNTER → 2025-05-12 11:04 | Outpatient (BNVA) | payer MEDICARE, SELFPAY | PROVIDERS: PCP Family Medicine; Visit Provider Family Medicine | DX: N30.00 Acute cystitis without hematuria (principal) | CPT/HCPCS: 81000 ==

== ENCOUNTER → 2025-07-14 11:00 | Outpatient (BNVA) | payer MEDICARE, SELFPAY | PROVIDERS: PCP Family Medicine; Visit Provider Emergency Medicine | DX: R39.9 Unspecified symptoms and signs involving the genitourinary system (principal) | CPT/HCPCS: 81000 ==

== ENCOUNTER → 2025-07-22 10:34 | Outpatient (BNVA) | payer MEDICARE, SELFPAY | PROVIDERS: PCP Family Medicine; Visit Provider Family Medicine | DX: N30.00 Acute cystitis without hematuria (principal); K81.1 Chronic cholecystitis | CPT/HCPCS: 80053; 83690; 85025 ==

== ENCOUNTER → 2025-09-04 13:09 | Outpatient (BNVA) | payer MEDICARE, SELFPAY | PROVIDERS: PCP Family Medicine; Visit Provider Internal Medicine Cardiovascular Disease | DX: I48.91 Unspecified atrial fibrillation (principal); Z79.01 Long term (current) use of anticoagulants; I11.0 Hypertensive heart disease with heart failure; I50.30 Unspecified diastolic (congestive) heart failure; R53.82 Chronic fatigue, unspecified; I87.2 Venous insufficiency (chronic) (peripheral); E66.2 Morbid (severe) obesity with alveolar hypoventilation; Z95.0 Presence of cardiac pacemaker | CPT/HCPCS: 99214 ==